=== PATIENT | female | born 1965 | race Caucasian/White ===

== ENCOUNTER 2016-12-23 21:40 | Emergency (ER) | payer OTHER ==
[2016-12-23 21:48] VITALS: BP 189/110; BMI 26.6
--- NOTE | 2016-12-23 23:01 | DR.GENAD ---
HPI - PCP Primary Care Physician: justyn - Complaint/Symptoms Chief Complaint Doctors Comments: Abdominal pain vomiting/diarrhea/ Rectal bleeding Chief Complaint:: c/o rectal bleeding all day-in no distress-also c/o stomach pain-also c/o vomiting and diarrhea - Nurses notes reviewed Nurses Notes Review: Yes - Source History Provided: Patient - Mode of Arrival Mode of Arrival: Ambulatory - Timing Onset of Chief Complaint: 12/23/16 PMH - PMH Past Medical History: Yes Past Medical History: Hypertension Past Medical History Comment: back pain Past Surgical History: Yes Surgical History: Hysterectomy Past Surgical History Comment: back surgery - Family History History of Family Medical Conditions: No Family Medical History: Hypertension - Social History Does any household member use tobacco: No Alcohol Use: None Do you use any recreational Drugs:: No - infectious screening In the last 2 months have you had wt loss of >10#?: NO Have you had fever, night sweats or hemotysis?: No Have you traveled outside the country in the last 6 months?: No Isolation: Standard ROS - Review of Systems Constitutional: No Symptoms Reported Eyes: No Symptoms Reported ENTM: No Symptoms Reported Respiratoy: No Symptoms Reported Cardiovascular: No Symptoms Reported Gastrointestinal/Abdominal: Abdominal Pain, Diarrhea, Nausea Genitourinary: No Symptoms Reported Neurological: No Symptoms Reported Musculoskeletal: No Symptoms Reported Integumentary: No Symptoms Reported Hematologic/Lymphatic: No Symptoms Reported Endocrine: No Symptoms Reported Psychiatric: No Symptoms Reported All Other Systems: Reviewed and Negative PE - Vital Signs Vitals: Temperature 97.9 F Pulse Rate 90 Respiratory Rate 16 Blood Pressure 189/110 O2 Sat by Pulse Oximetry 99 - General Limitations: No Limitations General Appearance: Alert, In No Apparent Distress - Head Head Exam: Normal Inspection - Eyes Eye exam: Normal Appearance - ENT ENT Exam: Normal Exam External Ear Exam: Normal External Inspection TM/Canal Exam: Bilateral Normal Nose Exam: Normal Nose Exam Mouth Exam: Normal Inspection Throat Exam: Normal Inspection - Neck Neck Exam: Normal Inspection - Chest Chest Inspection: Normal Inspection - Respiratory Respiratory Exam: Normal Lung Sounds Bilat Respiratory Exam: Bilateral Clear to Auscultation - Cardiovascular Cardiovascular Exam: Regular Rate, Normal Rhythm - Abdominal Exam Abdominal Exam: Normal Inspection, Normal Bowel Sounds, Soft, Tenderness Abdominal Tenderness: Diffuse - Extremities Extremities Exam: Normal Inspection, Full ROM - Back Back Exam: Normal Inspection - Neurologic Neurological Exam: Alert, Oriented X3 - Psychiatric Psychiatric Exam: Normal Affect, Normal Mood - Skin Skin Exam: Warm, Dry, Intact, Normal Color - Other Exam Other Exam: LUCIUS: Internal hemorrhoids Hemoccult (+) Course - Reevaluation 1st: Improved - Education/Counseling Education/Counseling: Patient Educated On: Treatment, Diagnosis, Needs for Follow Up ROR - Labs Reviewed Laboratory Results Reviewed?: Yes Result Diagrams: 12/23/16 23:10 Laboratory: WBC 14.3 X10^3/uL (3.6-10.0) H 12/23/16 23:10 RBC 4.78 X10^6/uL (3.5-5.4) 12/23/16 23:10 Hgb 13.4 g/dL (12.0-16.0) 12/23/16 23:10 Hct 40.2 % (36.0-47.0) 12/23/16 23:10 MCV 84.2 fL (80.0-100.0) 12/23/16 23:10 MCH 28.0 pg (27.0-34.0) 12/23/16 23:10 MCHC 33.3 g/dL (33.0-35.0) 12/23/16 23:10 RDW 13.0 % (11.6-16.5) 12/23/16 23:10 Plt Count 248 X10^3/uL (150.0-450.0) 12/23/16 23:10 MPV 8.4 fL (7.4-11.0) 12/23/16 23:10 Neut % 71.4 % (42.0-75.0) 12/23/16 23:10 Lymph % 20.1 % (21.0-51.0) L 12/23/16 23:10 [place] % 4.4 % (0.0-13.0) 12/23/16 23:10 Eos % 3.3 % (0.9-2.9) H 12/23/16 23:10 Baso % 0.8 % (0.2-1.0) 12/23/16 23:10 Neut # 10.2 x10^3/uL (2.2-4.8) H 12/23/16 23:10 Lymph # 2.9 X10^3/uL (1.3-2.9) 12/23/16 23:10 [place] # 0.6 x10^3/uL (0.3-0.8) 12/23/16 23:10 Eos # 0.5 x10^3/uL (0.0-0.2) H 12/23/16 23:10 Baso # 0.1 X10^3/uL (0.0-0.1) 12/23/16 23:10 Absolute Nucleated RBC 0.0 /100WBC 12/23/16 23:10 Specimen Type Clean catch urine 12/23/16 22:54 Urine Color Yellow (YELLOW) 12/23/16 22:54 Urine Appearance Slightly hazy (CLEAR) 12/23/16 22:54 Urine pH 7.0 (5.0 - 8.0) 12/23/16 22:54 Ur Specific [place] 1.020 (1.000-1.030) 12/23/16 22:54 Urine Protein 3+ (NEGATIVE) 12/23/16 22:54 Urine Glucose (UA) Negative (NEGATIVE) 12/23/16 22:54 Urine Ketones Negative (NEGATIVE) 12/23/16 22:54 Urine Occult Blood 2+ (NEGATIVE) 12/23/16 22:54 Urine Nitrite Negative (NEGATIVE) 12/23/16 22:54 Urine Bilirubin Negative (NEGATIVE) 12/23/16 22:54 Urine Urobilinogen Normal (NORMAL) 12/23/16 22:54 Ur Leukocyte Esterase 2+ (NEGATIVE) 12/23/16 22:54 Urine RBC 0-2 /HPF (NEGATIVE) 12/23/16 22:54 Urine WBC 8-10 /HPF (NEGATIVE) 12/23/16 22:54 Ur Squamous Epith Cells Moderate /HPF (NEGATIVE) 12/23/16 22:54 Urine Bacteria 1+ /HPF (NEGATIVE) 12/23/16 22:54 Urine Mucus Moderate /HPF (NEGATIVE) 12/23/16 22:54 Ur Culture Indicated? Yes/culture set up 12/23/16 22:54 Stool Description Fob tube 12/23/16 23:12 Stl Occult Blood (IFOB) Positive (NEGATIVE) A 12/23/16 23:12 reviewed - XRAY XRAY Interpreted by: Radiologist, Self XRAY Findings: normal - Diagnosis Discharge Problem: Internal hemorrhoids Abdominal pain Qualifiers: Abdominal location: generalized Qualified Code(s): R10.84 - Generalized abdominal pain Nausea & vomiting Qualifiers: Vomiting type: unspecified Vomiting Intractability: non-intractable Qualified Code(s): R11.2 - Nausea with vomiting, unspecified Elevated WBCs Qualifiers: Leukocytosis type: other Qualified Code(s): D72.828 - Other elevated white blood cell count - Discharge Plan Disposition: 01 HOME, SELF-CARE Condition: Stable - Follow ups/Referrals Follow ups/Referrals: JOVANNY COULTER [Primary Care Provider] - 3 days - Instructions Instructions: Nausea and Vomiting, Adult, Abdominal Pain, Adult, Hydy-[id number], Hemorrhoids, [id number] Additional Instructions: Follow up with PCP. Sitz bath, increase fiber intake.
[2016-12-23] MEDS ORDERED: TORADOL 60 MG VIAL IM ONE (23:10)
[2016-12-23] MEDS ORDERED: TORADOL 60 MG VIAL ONE (23:13)
[2016-12-23 23:16] LABS: BILIRUBIN,URINE NEGATIVE (NEGATIVE); BLOOD/HEMOGLOBIN,URINE 2+ (NEGATIVE); GLUCOSE, URINE NEGATIVE (NEGATIVE); KETONES,URINE NEGATIVE (NEGATIVE); LEUKOCYTE ESTERASE ,URINE 2+ (NEGATIVE); NITRITES,URINE NEGATIVE (NEGATIVE); PROTEIN,URINE 3+ (NEGATIVE); UROBILINOGEN,URINE NORMAL (NORMAL)
[2016-12-23 23:22] LABS: APPEARANCE,URINE SLIGHTLY HAZY (CLEAR); BACTERIA,URINE 1+ /HPF (NEGATIVE); COLOR,URINE YELLOW (YELLOW); RBC,URINE 0-2 /HPF (NEGATIVE); SQUAMOUS EPITHELIAL CELL,UR MODERATE /HPF (NEGATIVE)
[2016-12-23 23:23] LABS: MUCUS,URINE MODERATE /HPF (NEGATIVE)
[2016-12-23 23:30] LABS: BASOPHILS # (AUTO) 0.1 X10^3/uL (0.0-0.1); BASOPHILS % (AUTO) 0.8 % (0.2-1.0); EOSINOPHILS # (AUTO) 0.5 x10^3/uL (0.0-0.2); EOSINOPHILS % (AUTO) 3.3 % (0.9-2.9); HEMATOCRIT 40.2 % (36.0-47.0); HEMOGLOBIN 13.4 g/dL (12.0-16.0); LYMPHOCYTES # (AUTO) 2.9 X10^3/uL (1.3-2.9); LYMPHOCYTES % (AUTO) 20.1 % (21.0-51.0); MEAN CORPUSCULAR HGB CONC 33.3 g/dL (33.0-35.0); MEAN CORPUSCULAR VOLUME 84.2 fL (80.0-100.0); MEAN PLATELET VOLUME 8.4 fL (7.4-11.0); MONOCYTES # (AUTO) 0.6 x10^3/uL (0.3-0.8); MONOCYTES % (AUTO) 4.4 % (0.0-13.0); NEUTROPHILS # (AUTO) 10.2 x10^3/uL (2.2-4.8); NEUTROPHILS % (AUTO) 71.4 % (42.0-75.0); PLATELET COUNT 248 X10^3/uL (150.0-450.0); RED BLOOD COUNT 4.78 X10^6/uL (3.5-5.4); WHITE BLOOD COUNT 14.3 X10^3/uL (3.6-10.0)
[2016-12-23] MEDS ORDERED: ROCEPHIN VIAL 1 GM 1 GM in NS 50 ML IV + SPIKE MINIBAG* 50 ML IV ONE (23:47)
[2016-12-23] MEDS ORDERED: NS 1000 ML 1,000 ML IV ONE (23:47)
[2016-12-23] MEDS ORDERED: ZOFRAN INJ 4 MG VIAL IVP ONE (23:49)
--- NOTE | 2016-12-23 23:56 | RAD ---
EXAM: Abdomen series and Chest x-ray INDICATION: Abdominal pain COMPARISION: No priors TECHNIQUE: Abdomen flat and upright, two views and PA view of the chest, single view FINDINGS: The lungs are clear. No pneumothorax or pleural effusion. The cardiac silhouette and mediastinum are normal. The bowel gas pattern is nonobstructed. No abnormal mass effect or calcification. The regio nal skeleton is intact. No free air is seen under the hemidiaphragms. IMPRESSION: Normal abdominal series and chest x-ray. Reported By:
[2016-12-24] MEDS ORDERED: ZOFRAN INJ 4 MG VIAL ONE (00:03)
[2016-12-24] MEDS ORDERED: ROCEPHIN 1 GM IV PREMIX * OUT OF STOCK 50 ML IV ONE (00:03)
[2016-12-24] MEDS ORDERED: NS 1000 ML 1,000 ML ONE (00:03)
== END 2016-12-24 01:19 | disposition home or self-care (01) ==
LOC: ER 21:40
DX: K64.8 Other hemorrhoids (principal); R10.84 Generalized abdominal pain; R11.2 Nausea with vomiting, unspecified; D72.828 Other elevated white blood cell count
CPT/HCPCS: 36415; 74022; 81001; 82270; 85025; 87086; 96365; 96372; 96374; 96375; 99283; A4222; J0696; J1885; J2405

== ENCOUNTER → 2017-04-29 | Outpatient (CLI) | payer OTHER ==
[2017-04-29 15:17] LABS: ALANINE AMINOTRANSFERASE 20 Units/L (12-78); ALBUMIN 3.6 g/dL (3.4-5.0); ALKALINE PHOSPHATASE 110 Units/L (46-116); ASPARTATE AMINO TRANSFERASE 12 Units/L (15-37); BLOOD UREA NITROGEN 24 mg/dL (7-18); CALCIUM 9.5 mg/dL (8.5-10.1); CARBON DIOXIDE 29.1 mmol/L (21-32); CHLORIDE 103 mmol/L (98-107); CREATININE 1.04 mg/dL (0.55-1.02); GLUCOSE 92 mg/dL (65-99); SODIUM 137 mmol/L (136-145); TOTAL PROTEIN 8.1 g/dL (6.4-8.2); eGFR BLACK RACES > 60 (>60); eGFR NON BLACK RACES 60 (>60)
== END ==
LOC: LAB 14:37
PROVIDERS: ATTEND Physical Medicine & Rehabilitation Pain Medicine
DX: Z79.891 Long term (current) use of opiate analgesic (principal)
CPT/HCPCS: 36415; 80053

== ENCOUNTER → 2017-08-20 | Outpatient (CLI) | payer OTHER ==
[2017-08-20 09:13] LABS: CRYPTOSPORIDIUM PARVUM ANTIGEN NEGATIVE (NEGATIVE); GIARDIA LAMBLIA ANTIGEN NEGATIVE (NEGATIVE)
== END ==
LOC: LAB 07:46
PROVIDERS: ATTEND Family Medicine
DX: R19.7 Diarrhea, unspecified (principal); R19.5 Other fecal abnormalities
CPT/HCPCS: 82270; 87045; 87328; 87329; 87336; 87427; 87493; 87899

== ENCOUNTER 2018-01-09 22:52 | Emergency (ER) | payer OTHER ==
[2018-01-09 23:09] VITALS: BP 108/74; BMI 30.2
[2018-01-09] MEDS ORDERED: NUBAIN INJ 200 MG VIAL MULTIDOSE IVP ONE (23:18)
--- NOTE | 2018-01-09 23:20 | DR.GENAD ---
HPI - PCP Primary Care Physician: Terrance Starr - Complaint/Symptoms Chief Complaint:: Hurting in left hip and leg. (Patient states that she has a disc on her nerve on that side) Self Treatment fo Chief Complaint: Patient states that she has been taking medication as prescribe but today she took them more than she should; but the medication is still not working. (Hydrocodone and Xanax) - Nurses notes reviewed Nurses Notes Review: Yes - Source History Provided: Patient - Mode of Arrival Mode of Arrival: Ambulatory - Timing Onset of Chief Complaint: 01/02/18 PMH - PMH Past Medical History: Yes Past Medical History: Migraines Past Surgical History: Yes Surgical History: Ortho Surgery Past Surgical History Comment: Back Surgery 2016 - Family History History of Family Medical Conditions: Yes Family Medical History: Diabetes Mellitus, Cancer, Heart Failure - Social History Does patient currently use any type of tobacco product: No Have you used tobacco products in the last 12 months: No Type of Tobacco Use: None Does any household member use tobacco: No Alcohol Use: None Do you use any recreational Drugs:: No Lives With: Alone Lives Where: Home - infectious screening In the last 2 months have you had wt loss of >10#?: NO Have you had fever, night sweats or hemotysis?: No Have you traveled outside the country in the last 6 months?: Yes Details about traveling: [place] Isolation: Standard ROS - Review of Systems Constitutional: No Symptoms Reported Eyes: No Symptoms Reported ENTM: No Symptoms Reported Respiratoy: No Symptoms Reported Cardiovascular: No Symptoms Reported Gastrointestinal/Abdominal: No Symptoms Reported Genitourinary: No Symptoms Reported Neurological: No Symptoms Reported Musculoskeletal: Back Pain Integumentary: No Symptoms Reported Hematologic/Lymphatic: No Symptoms Reported Endocrine: No Symptoms Reported Psychiatric: No Symptoms Reported All Other Systems: Reviewed and Negative PE - Vital Signs Vitals: Temperature 97.7 F Pulse Rate 94 Respiratory Rate 18 Blood Pressure 108/74 O2 Sat by Pulse Oximetry 94 - General Limitations: No Limitations General Appearance: Alert, In No Apparent Distress - Head Head Exam: Normal Inspection - Eyes Eye exam: Normal Appearance - ENT ENT Exam: Normal Exam - Neck Neck Exam: Normal Inspection, Full ROM - Chest Chest Inspection: Normal Inspection - Respiratory Respiratory Exam: Normal Lung Sounds Bilat - Cardiovascular Cardiovascular Exam: Regular Rate, Normal Rhythm, +S1, +S2 - Abdominal Exam Abdominal Exam: Normal Inspection, Normal Bowel Sounds, Soft - Extremities Extremities Exam: Normal Inspection - Back Back Exam: Normal Inspection, (L) Sciatic Notch Tendern - Neurologic Neurological Exam: Alert, Oriented X3 - Psychiatric Psychiatric Exam: Normal Affect, Normal Mood - Skin Skin Exam: Warm, Dry, Intact, Normal Color - Diagnosis Discharge Problem: Acute exacerbation of chronic low back pain - Discharge Plan Disposition: 01 HOME, SELF-CARE Condition: Stable - Follow ups/Referrals Follow ups/Referrals: TERRANCE STARR [Primary Care Provider] - 3 days - Instructions Instructions: What You Need to Know About Chronic Back Pain
[2018-01-09] MEDS ORDERED: NUBAIN INJ 10 ONE (23:23)
== END 2018-01-09 23:43 | disposition home or self-care (01) ==
LOC: ER 23:01
DX: M54.5 Low back pain (principal)
CPT/HCPCS: 96372; 99282; J2300

== ENCOUNTER 2019-03-24 09:58 | Inpatient (IN) ==
[2019-03-24 10:23] VITALS: BMI 32.3
[2019-03-24 10:51] LABS: BASOPHILS % (AUTO) 1.1 % (0.2-1.0); EOSINOPHILS # (AUTO) 0.2 x10^3/uL (0.0-0.2); EOSINOPHILS % (AUTO) 6.3 % (0.9-2.9); HEMATOCRIT 25.3 % (36.0-47.0); HEMOGLOBIN 8.6 g/dL (12.0-16.0); LYMPHOCYTES # (AUTO) 1.3 X10^3/uL (1.3-2.9); LYMPHOCYTES % (AUTO) 41.9 % (21.0-51.0); MEAN CORPUSCULAR HEMOGLOBIN 34.4 pg (27.0-34.0); MEAN CORPUSCULAR HGB CONC 34.1 g/dL (33.0-35.0); MEAN CORPUSCULAR VOLUME 100.9 fL (80.0-100.0); MEAN PLATELET VOLUME 7.2 fL (7.4-11.0); MONOCYTES # (AUTO) 0.3 x10^3/uL (0.3-0.8); NEUTROPHILS # (AUTO) 1.2 x10^3/uL (2.2-4.8); NEUTROPHILS % (AUTO) 39.7 % (42.0-75.0); PLATELET COUNT 124 X10^3/uL (150.0-450.0); RED BLOOD COUNT 2.51 X10^6/uL (3.5-5.4); RED CELL DISTRIBUTION WIDTH 16.9 % (11.6-16.5)
--- NOTE | 2019-03-24 10:57 | CT ---
HISTORY: Lethargy, unresponsive, altered mental status Study: CT head without contrast Comparison: 01/24/2019 Technique: Axial noncontrast images with coronal and sagittal reformats. Dose reduction procedures were used with mA/kv adjusted for body size. Findings: The ventricles are normal in size shape and position. There are no areas of abnormal attenuation to suggest recent or remote CVA, hemorrhage, mass lesion, or extra-axial fluid collection. The visualized sinuses are clear. The calvarium is intact. IMPRESSION: No significant intracranial abnormality identified Reported By:
--- NOTE | 2019-03-24 11:04 | DR.AMS ---
HPI Time Seen Time Seen by Provider: 03/24/19 11:01 PCP Primary Care Physician: MARYLIN Complaint Chief Complaint:: PT'S FAMILY MEMBER CALLS EMS DUE TO PT. HAVING AMS. LAST KNOWN NORMAL WAS SATURDAY. UPON ARRIVAL TO ER, PT. IS LETHARGIC. PT. RESPONDS TO PAINFUL STIMULI BY FACIAL GRIMACING BUT PT. IS NOT RESPONDING VERBALLY. PT. NOTED TO HAVE A TWITCHING MOVEMENT TO BODY. Source History Provided: Family Member and EMS Mode of Arrival Mode of Arrival: EMS Timing Onset of Chief Complaint: 03/24/19 PMH PMH Past Medical History: Yes Past Medical History: Anemia and Migraines Past Medical History Comment: COLON CANCER Past Surgical History: Yes Surgical History: Abdominal Surgery, Appendectomy, , Cholecystectomy, Hysterectomy, Ortho Surgery and Other Family History History of Family Medical Conditions: Yes Family Medical History: Diabetes Mellitus, Cancer and Heart Failure Social History Does patient currently use any type of tobacco product: No Have you used tobacco products in the last 12 months: No Type of Tobacco Use: None Does any household member use tobacco: No Alcohol Use: None Do you use any recreational Drugs:: No Lives With: Alone Lives Where: Home infectious screening In the last 2 months have you had wt loss of >10#?: NO Have you had fever, night sweats or hemotysis?: No Have you traveled outside the country in the last 6 months?: No Isolation: Standard ROS Review of Systems Constitutional: No Symptoms Reported Eyes: No Symptoms Reported ENTM: No Symptoms Reported Respiratoy: No Symptoms Reported Cardiovascular: No Symptoms Reported Gastrointestinal/Abdominal: No Symptoms Reported Genitourinary: No Symptoms Reported Neurological: No Symptoms Reported Musculoskeletal: No Symptoms Reported Hematologic/Lymphatic: No Symptoms Reported All Other Systems: Reviewed and Negative PE Vitals Vital Signs: Temp Pulse Pulse Resp BP BP BP 03/25/19 02:00 88 26 H 135/72 03/25/19 01:01 87 31 H 136/73 03/25/19 01:00 86 26 H 03/25/19 00:00 98.4 F 85 21 125/61 03/24/19 23:30 85 19 114/62 03/24/19 23:00 86 21 120/74 03/24/19 22:30 83 118/66 03/24/19 22:05 85 24 113/61 03/24/19 22:00 86 22 03/24/19 21:30 84 24 109/60 03/24/19 21:00 86 17 104/57 03/24/19 20:30 88 21 101/59 03/24/19 20:00 98.0 F 86 15 107/58 03/24/19 19:30 88 23 110/56 03/24/19 19:00 89 15 107/54 03/24/19 16:15 96 H 16 03/24/19 16:00 96 H 15 102/55 03/24/19 15:45 93 H 16 03/24/19 15:30 94 H 15 111/57 03/24/19 15:15 93 H 15 03/24/19 15:14 91 H 16 107/59 03/24/19 15:13 95 H 18 03/24/19 15:00 98.9 F 94 H 93 H 21 109/56 111/57 03/24/19 14:45 94 H 22 100/52 03/24/19 14:15 20 92/55 03/24/19 14:00 85 27 H 79/52 03/24/19 13:40 84 17 90/52 03/24/19 13:20 14 90/51 03/24/19 13:00 85 15 98/52 03/24/19 12:45 87 12 97/54 03/24/19 12:00 91 H 11 L 101/53 03/24/19 11:40 93 H 12 103/53 03/24/19 11:28 92 H 13 112/59 03/24/19 11:05 94 H 15 119/61 03/24/19 10:19 99 F 97 H 17 106/81 01/24/19 04:04 108/72 108/72 11/08/18 08:25 122/79 BP BP Pulse Ox 03/25/19 02:00 99 03/25/19 01:01 99 03/25/19 01:00 99 03/25/19 00:00 100 03/24/19 23:30 99 03/24/19 23:00 99 03/24/19 22:30 98 03/24/19 22:05 99 03/24/19 22:00 100 03/24/19 21:30 99 03/24/19 21:00 98 03/24/19 20:30 98 03/24/19 20:00 98 03/24/19 19:30 99 03/24/19 19:00 98 03/24/19 16:15 98 03/24/19 16:00 98 03/24/19 15:45 98 03/24/19 15:30 92 L 03/24/19 15:15 03/24/19 15:14 03/24/19 15:13 03/24/19 15:00 97 03/24/19 14:45 97 03/24/19 14:15 99 03/24/19 14:00 98 03/24/19 13:40 98 03/24/19 13:20 98 03/24/19 13:00 98 03/24/19 12:45 97 03/24/19 12:00 98 03/24/19 11:40 98 03/24/19 11:28 98 03/24/19 11:05 95 03/24/19 10:19 95 01/24/19 04:04 11/08/18 08:25 125/77 121/71 General Limitations: Altered Mental Status General Appearance: Appears Intoxicated and Obtunded Head Head Exam: Normal Inspection, Atraumatic and Normocephalic Eyes Eye exam: Normal Appearance Pupils: Regular, Round: Bilateral ENT ENT Exam: Normal Exam and Normal Oropharynx External Ear Exam: Normal External Inspection TM/Canal Exam: Bilateral: Normal Nose Exam: Normal Nose Exam Mouth Exam: Normal Inspection Throat Exam: Normal Inspection Neck Neck Exam: Normal Inspection and Full ROM Chest Chest Inspection: Normal Inspection and Symmetric Chest Wall Rise Respiratory Respiratory Exam: Normal Lung Sounds Bilat Respiratory Exam: Bilateral: Clear to Auscultation Cardiovascular Cardiovascular Exam: Regular Rate and Normal Rhythm Abdominal Exam Abdominal Exam: Normal Inspection, Normal Bowel Sounds and Soft Abdominal Tenderness: RUQ Extremities Extremities Exam: Normal Inspection and Full ROM Back Back Exam: Normal Inspection Neurological Neurological Exam: Alert, Oriented X3 and CN II-XII Intact Cranial Nerve Exam: EOM Function (II, III, IV, ): Normal Cerebellar Function: Finger to Nose: Normal Skin Skin Exam: Warm, Dry and Intact COURSE Consultation Called: 12:20 Consultation Comments: DR. Potter agree to admit for further evaluation and treatment ROR Labs Reviewed Laboratory Results Reviewed?: Yes Result Diagrams: 03/25/19 04:06 03/25/19 04:06 Laboratory: WBC 2.2 X10^3/uL (3.6-10.0) L 03/25/19 04:06 RBC 2.47 X10^6/uL (3.5-5.4) L 03/25/19 04:06 Hgb 8.5 g/dL (12.0-16.0) L 03/25/19 04:06 Hct 24.8 % (36.0-47.0) L 03/25/19 04:06 MCV 100.3 fL (80.0-100.0) H 03/25/19 04:06 MCH 34.5 pg (27.0-34.0) H 03/25/19 04:06 MCHC 34.4 g/dL (33.0-35.0) 03/25/19 04:06 RDW 16.3 % (11.6-16.5) 03/25/19 04:06 Plt Count 112 X10^3/uL (150.0-450.0) L 03/25/19 04:06 Plt Count Comment Decreased (ADEQUATE) A 03/25/19 04:06 MPV 7.5 fL (7.4-11.0) 03/25/19 04:06 Neut % (Auto) 41.3 % (42.0-75.0) L 03/25/19 04:06 Lymph % (Auto) 42.4 % (21.0-51.0) 03/25/19 04:06 [facility] % (Auto) 12.4 % (0.0-13.0) 03/25/19 04:06 Eos % (Auto) 3.2 % (0.9-2.9) H 03/25/19 04:06 Baso % (Auto) 0.7 % (0.2-1.0) 03/25/19 04:06 Neut # (Auto) 0.9 x10^3/uL (2.2-4.8) L 03/25/19 04:06 Lymph # (Auto) 0.9 X10^3/uL (1.3-2.9) L 03/25/19 04:06 [facility] # (Auto) 0.3 x10^3/uL (0.3-0.8) 03/25/19 04:06 Eos # (Auto) 0.1 x10^3/uL (0.0-0.2) 03/25/19 04:06 Baso # (Auto) 0.0 X10^3/uL (0.0-0.1) 03/25/19 04:06 Absolute Nucleated RBC 0.0 /100WBC 03/25/19 04:06 Total Counted 100 03/25/19 04:06 Neutrophils % (Manual) 40 % (39-76) 03/25/19 04:06 Lymphocytes % (Manual) 44 % (13-43) H 03/25/19 04:06 Monocytes % (Manual) 15 % (4-9) H 03/25/19 04:06 Eosinophils % (Manual) 1 % (0-6) 03/25/19 04:06 Plt Morphology Comment Normal (NORMAL) 03/25/19 04:06 RBC Morphology Normal (NORMAL) 03/25/19 04:06 INR Target Range - 03/24/19 10:33 INR 1.08 (0.8-1.3) 03/24/19 10:33 APTT 30.1 SECONDS (22.9-36.5) 03/24/19 10:33 PTT Comment - 03/24/19 10:33 Sodium 143 mmol/L (136-145) 03/25/19 04:06 Corrected Sodium 143 mmol/L (136-145) 03/25/19 04:06 Potassium 3.6 mmol/L (3.5-5.1) 03/25/19 04:06 Chloride 109 mmol/L (98-107) H 03/25/19 04:06 Carbon Dioxide 24.1 mmol/L (21-32) 03/25/19 04:06 BUN 9 mg/dL (7-18) 03/25/19 04:06 Creatinine 1.21 mg/dL (0.55-1.02) H 03/25/19 04:06 Est GFR (MDRD) Af Amer > 60 (>60) 03/25/19 04:06 Est GFR (MDRD) Non-Af 50 (>60) L 03/25/19 04:06 Glucose 112 mg/dL (65-99) H 03/25/19 04:06 POC Glucose (mg/dL) 110 mg/dL (65-99) H 03/24/19 21:39 Calcium 8.8 mg/dL (8.5-10.1) 03/25/19 04:06 Corrected Calcium 9.6 mg/dL (8.5-10.1) 03/25/19 04:06 Total Bilirubin 1.30 mg/dL (0.2-1.0) H 03/25/19 04:06 AST 67 Units/L (15-37) H 03/25/19 04:06 ALT 36 Units/L (12-78) 03/25/19 04:06 Alkaline Phosphatase 149 Units/L (46-116) H 03/25/19 04:06 Ammonia 58 umol/L (11-32) H 03/25/19 04:06 Creatine Kinase 563 Units/L (26-192) H 03/24/19 10:33 CK-MB (CK-2) 1.8 ng/mL (0-4.0) 03/24/19 10:33 CK/CKMB % Calc 0.3 % (<4) 03/24/19 10:33 Troponin I < 0.02 ng/mL (0-1.5) 03/24/19 10:33 Total Protein 6.4 g/dL (6.4-8.2) 03/25/19 04:06 Albumin 3.0 g/dL (3.4-5.0) L 03/25/19 04:06 Globulin 3.4 g/dL (2.5-4.5) 03/25/19 04:06 Albumin/Globulin Ratio 0.9 Ratio (1.1-2.1) L 03/25/19 04:06 Specimen Type Catherized urine 03/24/19 10:58 Urine Color Yellow (YELLOW) 03/24/19 10:58 Urine Appearance Hazy (CLEAR) 03/24/19 10:58 Urine pH 5.0 (5.0 - 8.0) 03/24/19 10:58 Ur Specific [place] 1.020 (1.000-1.030) 03/24/19 10:58 Urine Protein 1+ (NEGATIVE) 03/24/19 10:58 Urine Glucose (UA) Negative (NEGATIVE) 03/24/19 10:58 Urine Ketones Negative (NEGATIVE) 03/24/19 10:58 Urine Occult Blood 1+ (NEGATIVE) 03/24/19 10:58 Urine Nitrite Negative (NEGATIVE) 03/24/19 10:58 Urine Bilirubin Negative (NEGATIVE) 03/24/19 10:58 Urine Urobilinogen 1+ (NORMAL) 03/24/19 10:58 Ur Leukocyte Esterase 1+ (NEGATIVE) 03/24/19 10:58 Urine RBC 0-2 /HPF (NONE SEEN) 03/24/19 10:58 Urine WBC 0-2 /HPF (NONE SEEN) 03/24/19 10:58 Ur Squamous Epith Cells Negative /HPF (NEGATIVE) 03/24/19 10:58 Urine Bacteria Negative /HPF (NEGATIVE) 03/24/19 10:58 Hyaline Casts Few /LPF (NEGATIVE) 03/24/19 10:58 Urine Mucus Few /HPF (NEGATIVE) 03/24/19 10:58 Ur Culture Indicated? No/not indicated 03/24/19 10:58 Urine Opiates Screen Positive (NEG=<300) A 03/24/19 10:58 Urine Methadone Screen Negative (NEG=<300) 03/24/19 10:58 Ur Barbiturates Screen Negative (NEG=<200) 03/24/19 10:58 Ur Phencyclidine Scrn Negative (NEG=<25) 03/24/19 10:58 Ur Amphetamines Screen Negative (NEG=<1000) 03/24/19 10:58 U Benzodiazepines Scrn Positive (NEG=<200) A 03/24/19 10:58 Urine Cocaine Screen Negative (NEG=<300) 03/24/19 10:58 U Marijuana (THC) Screen Negative (NEG=<50) 03/24/19 10:58 Other Results Comments: CT Brain: No significant intracranial abnormality idientified XRAY XRAY Interpreted by: Radiologist Opioid Opioid Risk Tool Total: 0 Total Score Risk Category: Low Risk Copyright: Moi BARRETT predicting aberrant behaviors ADDITIONAL NOTES Additional Notes Additional Notes: Patient admitted to the service of Dr. Potter
[2019-03-24 11:05] LABS: ALANINE AMINOTRANSFERASE 42 Units/L (12-78); ALBUMIN 3.4 g/dL (3.4-5.0); ALKALINE PHOSPHATASE 167 Units/L (46-116); ASPARTATE AMINO TRANSFERASE 61 Units/L (15-37); BLOOD UREA NITROGEN 12 mg/dL (7-18); CALCIUM 9.4 mg/dL (8.5-10.1); CARBON DIOXIDE 27.8 mmol/L (21-32); CHLORIDE 106 mmol/L (98-107); CKMB % 0.3 % (<4); CREATINE KINASE 563 Units/L (26-192); CREATINE KINASE MB 1.8 ng/mL (0-4.0); CREATININE 2.52 mg/dL (0.55-1.02); SODIUM 142 mmol/L (136-145); TOTAL PROTEIN 7.3 g/dL (6.4-8.2); TROPONIN I < 0.02 ng/mL (0-1.5); eGFR NON BLACK RACES 21 (>60)
--- NOTE | 2019-03-24 11:09 | RAD ---
Chest, 1 view Indication: Altered mental status Comparison: 01/24/2019 Findings: The cardiac silhouette is stable. There is decreased depth of inspiration with increased interstitial prominence. No dense infiltrates or significant pleural effusion. Impression: Interstitial prominence is likely secondary to low lung volumes, although atypical infection or minimal edema is not excluded. Consider two-view chest, as indicated. Reported By:
[2019-03-24 11:10] LABS: BILIRUBIN,URINE NEGATIVE (NEGATIVE); BLOOD/HEMOGLOBIN,URINE 1+ (NEGATIVE); GLUCOSE, URINE NEGATIVE (NEGATIVE); KETONES,URINE NEGATIVE (NEGATIVE); LEUKOCYTE ESTERASE ,URINE 1+ (NEGATIVE); NITRITES,URINE NEGATIVE (NEGATIVE); PROTEIN,URINE 1+ (NEGATIVE); UROBILINOGEN,URINE 1+ (NORMAL)
[2019-03-24 11:14] LABS: APPEARANCE,URINE HAZY (CLEAR); COLOR,URINE YELLOW (YELLOW)
[2019-03-24 11:15] LABS: BACTERIA,URINE NEGATIVE /HPF (NEGATIVE); HYALINE CASTS, URINE FEW /LPF (NEGATIVE); MUCUS,URINE FEW /HPF (NEGATIVE); RBC,URINE 0-2 /HPF (NONE SEEN); SQUAMOUS EPITHELIAL CELL,UR NEGATIVE /HPF (NEGATIVE)
[2019-03-24] MEDS: NS 1000 ML 1,000 ML IV SCH ×3 (13:03→23:59)
[2019-03-24] MEDS ORDERED: NS 1000 ML 1,000 ML IV ONE (14:17)
[2019-03-24] MEDS ORDERED: ZOFRAN INJ 4 MG VIAL IVP PRN (14:27)
[2019-03-24] MEDS ORDERED: VITAMIN D (1.25MG) PO SCH (14:30)
[2019-03-24] MEDS ORDERED: NS 1000 ML 1,000 ML IV SCH (15:00)
[2019-03-24] MEDS ORDERED: TOPAMAX TAB 100 MG PO SCH (21:00)
[2019-03-24] MEDS: CHRONULAC PO PRN (21:58)
[2019-03-24] MEDS: DESYREL PO SCH (21:59)
[2019-03-24] MEDS: ZESTORETIC 10/ 12.5MG PO SCH (22:00)
[2019-03-24] MEDS ORDERED: NEURONTIN TAB 600 MG PO SCH (22:00)
[2019-03-25 04:22] LABS: BASOPHILS % (AUTO) 0.7 % (0.2-1.0); EOSINOPHILS # (AUTO) 0.1 x10^3/uL (0.0-0.2); EOSINOPHILS % (AUTO) 3.2 % (0.9-2.9); HEMATOCRIT 24.8 % (36.0-47.0); HEMOGLOBIN 8.5 g/dL (12.0-16.0); LYMPHOCYTES # (AUTO) 0.9 X10^3/uL (1.3-2.9); LYMPHOCYTES % (AUTO) 42.4 % (21.0-51.0); MEAN CORPUSCULAR HEMOGLOBIN 34.5 pg (27.0-34.0); MEAN CORPUSCULAR HGB CONC 34.4 g/dL (33.0-35.0); MEAN CORPUSCULAR VOLUME 100.3 fL (80.0-100.0); MEAN PLATELET VOLUME 7.5 fL (7.4-11.0); MONOCYTES # (AUTO) 0.3 x10^3/uL (0.3-0.8); MONOCYTES % (AUTO) 12.4 % (0.0-13.0); NEUTROPHILS # (AUTO) 0.9 x10^3/uL (2.2-4.8); NEUTROPHILS % (AUTO) 41.3 % (42.0-75.0); PLATELET COUNT 112 X10^3/uL (150.0-450.0); RED BLOOD COUNT 2.47 X10^6/uL (3.5-5.4); RED CELL DISTRIBUTION WIDTH 16.3 % (11.6-16.5); WHITE BLOOD COUNT 2.2 X10^3/uL (3.6-10.0)
[2019-03-25 04:28] LABS: ALANINE AMINOTRANSFERASE 36 Units/L (12-78); ALKALINE PHOSPHATASE 149 Units/L (46-116); ASPARTATE AMINO TRANSFERASE 67 Units/L (15-37); BLOOD UREA NITROGEN 9 mg/dL (7-18); CALCIUM 8.8 mg/dL (8.5-10.1); CARBON DIOXIDE 24.1 mmol/L (21-32); CHLORIDE 109 mmol/L (98-107); COR CA(FOR HYPOALB) 9.6 mg/dL (8.5-10.1); COR NA(FOR HYPERGLY) 143 mmol/L (136-145); CREATININE 1.21 mg/dL (0.55-1.02); SODIUM 143 mmol/L (136-145); TOTAL PROTEIN 6.4 g/dL (6.4-8.2); eGFR NON BLACK RACES 50 (>60)
[2019-03-25 04:49] LABS: PLATELET MORPHOLOGY COMMENT NORMAL (NORMAL)
[2019-03-25 05:24] LABS: BILIRUBIN,URINE NEGATIVE (NEGATIVE); BLOOD/HEMOGLOBIN,URINE 2+ (NEGATIVE); GLUCOSE, URINE NEGATIVE (NEGATIVE); KETONES,URINE NEGATIVE (NEGATIVE); LEUKOCYTE ESTERASE ,URINE 1+ (NEGATIVE); NITRITES,URINE NEGATIVE (NEGATIVE); PROTEIN,URINE 1+ (NEGATIVE); UROBILINOGEN,URINE 1+ (NORMAL)
[2019-03-25 05:34] LABS: APPEARANCE,URINE CLEAR (CLEAR); BACTERIA,URINE NEGATIVE /HPF (NEGATIVE); COLOR,URINE PALE YELLOW (YELLOW); SQUAMOUS EPITHELIAL CELL,UR FEW /HPF (NEGATIVE)
[2019-03-25] MEDS: NS 1000 ML 1,000 ML IV SCH ×3 (07:01→17:12)
[2019-03-25] MEDS ORDERED: PHARMACY CONSULT - DOSE _____ XX SCH (08:00)
[2019-03-25] MEDS ORDERED: NEURONTIN TAB 600 MG PO PRN (09:41)
[2019-03-25 10:21] LABS: ABG BASE EXCESS 1.7 mmol/L (-2.0-2.0); ABG HCO3 25.8 mmol/L (22-26)
[2019-03-25] MEDS: PROTONIX TAB 40 MG PO SCH (10:30)
[2019-03-25] MEDS: CYMBALTA PO SCH (10:50)
[2019-03-25] MEDS: ROCEPHIN VIAL 1 GRAM IVP SCH (10:51)
[2019-03-25] MEDS: ZESTORETIC 10/ 12.5MG PO SCH ×2 (10:51→21:09)
--- NOTE | 2019-03-25 13:20 | CT ---
CT OF THE ABDOMEN AND PELVIS WITH CONTRAST HISTORY: Abdominal pain and distention. History of colon cancer. Comparison: 11/08/2018 Technique: Multiple axial images of the abdomen and pelvis were obtained from the lung bases to the pubic symphysis follow the administration of IV contrast. Dose reduction techniques including Automated Exposure Control (AEC) and adjustment of mA and kV were utlized. Findings: The heart is normal in size. There is no pericardial effusion. Focal atelectasis/ground-glass at the left lung base. Spleen measures 16 cm in anterior-posterior dimension. Liver is not enlarged. No focal lesions. The portal vein is patent. No ductal dilitation. Gallbladder absent. The pancreas is unremarkable. Adrenal glands are normal. Kidneys enhance symmetrically without hydronephrosis or nephrolithiasis. No bowel obstruction or inflammation. Prior bowel surgery. No abnormal appearing mesenteric or retroperitoneal lymph nodes. No free fluid or fluid collections. The bladder is normal in appearance. Uterus present. No free fluid or abnormal pelvic lymph nodes. No aggressive osseous lesions. IMPRESSION: 1. No source of abdominal distention is identified on this examination. 2. Mild splenomegaly. 3. Atelectasis at the left lung base. Superimposed infection cannot be excluded. Reported By:
--- NOTE | 2019-03-25 14:27 | RAD ---
HISTORY: AMS, shortness of breath, pneumonia. Prior history of colon cancer and anemia. Study: Single-view chest Comparison: 03/24/2019. Findings: Trachea is midline. Heart size is upper normal with pulmonary vascular congestion and increased interstitial markings bilaterally, having the appearance of mild CHF. No consolidation, pleural fluid or pneumothorax is seen. IMPRESSION: Findings likely representing mild CHF. No consolidation or pleural fluid is seen. Reported By:
[2019-03-25] MEDS: LOVENOX INJ 30 MG SYR SC SCH (14:54)
[2019-03-25] MEDS ORDERED: LASIX IVP ONE (17:21)
--- NOTE | 2019-03-25 17:27 | DR.H&P ---
H&P - History & Physical for Day of: H&P Date: 03/24/19 - Chief Complaint Chief Complaint: AMS - History of Present Illness History of Present Illness: 54 WF ER ADMISSION PRESENTIN TO ER AFTER PT'S FAMILY MEMBER CALLS EMS DUE TO MS TRUJILLO HAVING AMS. LAST KNOWN NORMAL WAS SATURDAY. UPON ARRIVAL TO ER, PATIENT WAS LETHARGIC. PT. RESPONDS TO PAINFUL STIMULI BY FACIAL GRIMACING BUT PT. IS NOT RESPONDING VERBALLY. PT. NOTED TO HAVE A TWITCHING M OVEMENT TO BODY. PT HAD CXR WITH POSSIBLE PNEUMONIA, PT UDS +BENZOS AND OPIOIDS WHICH SHE IS PRESCRIBED. PT HAS COLON CANCER AND RECEIVED LAST CHEMO TREATMENT IN [place] 2 WEEKS AGO. HAD PET SCAN SET UP FOR SATURDAY BUT "SLEPT ALL DAY" PER FAMILY. PTS AMMONIA LEVEL >80. PT ADMITTED TO ICU FOR TREATMENT AND EVALUATION OF AMS. - Past Medical History Past Medical History: Anemia, Migraines. denies: COPD, Coronary Artery Disease, Diabetes, Hypertension - Past Surgical History Surgical History: Abdominal Surgery, Appendectomy, Cholecystectomy, , Hysterectomy, Ortho Surgery, Other - Family History Family Medical History: Diabetes Mellitus, Cancer, Heart Failure - Social History Does patient currently use any type of tobacco product: No Have you used tobacco products in the last 12 months: No Type of Tobacco Use: None Does any household member use tobacco: No Alcohol Use: None Drug Use: None - Medications Home Medications: No Known Drug Allergies Allergy (Verified 07/16/18 07:32) CONTINUE taking the following medications citalopram 40 mg PO DAILY 03/24/19 [History] clonidine HCl 0.2 mg PO QHS 03/24/19 [History] ergocalciferol (vitamin D2) [Vitamin D2] 50,000 unit PO QWEEK 03/24/19 [History] estradiol 2 mg PO DAILY 03/24/19 [History] lisinopril 10 mg PO DAILY 03/24/19 [History] - Review of Systems Constitutional: Other (AMS) Eyes: No Symptoms Reported ENT: No Symptoms Reported Respiratory: Shortness of Breath Cardiovascular: No Symptoms Reported Gastrointestinal: Other (DISTENTION) Genitourinary: Incontinence Musculoskeletal: No Symptoms Reported Skin: No Symptoms Reported Neurological: Weakness, Other (AMS) - Physical Exam Vital Signs: Temperature 98.4 F Pulse Rate [Apical] 93 Pulse Rate 91 Respiratory Rate 20 Blood Pressure [Left Arm] 111/57 Blood Pressure [Standing] 121/71 Blood Pressure [Sitting] 125/77 Blood Pressure [Lying] 122/79 Blood Pressure 129/72 O2 Sat by Pulse Oximetry 97 Oriented: Unable to test Eyes: Normal Ear: Normal Nose: Normal Throat: Dry Respiratory: RML Diminished, RLL Diminished, LML Diminished, LLL Diminished Cardiovascular: Normal. negative: Edema : Normal Auscultation: Bowel Sounds: Normal Palpation: Other (MILD DIFFUSE DISTENTION) Skin: Decreased Turgur Musculoskeletal: Normal Mood Description: Flat Speech Pattern: Delayed (LIMITED VERBAL RESPONSE), Slurred - Assessment/Plan (1) Altered mental status Status: Acute Plan: ADMIT ICU, CONTINUOUS CARDIAC MONITORING. CT HEAD ON ADMISSION IN ER. CE, SUPPLEMENTAL O2. [facility] CATH, ADMISSION CXR. AM LABS, NEURO CHECKS, STRICT I& OS (2) Lethargic Status: Acute (3) Increased ammonia level Status: Acute (4) Pneumonia Status: Acute (5) Colon cancer Status: Acute - Allergies Allergies/Adverse Reactions: Allergies Allergy/AdvReac Type Severity Reaction Status Date / Time No Known Drug Allergies Allergy Verified 07/16/18 07:32
--- NOTE | 2019-03-25 17:42 | PCM.PROG ---
Progress Note - Progress Note for Day of Date of Exam: 03/25/19 - Subjective Subjective: 53 WF ER ADMISSION ON 03/24 WITH AMS, LETHARGIC. PT HAS PMH OF COLON CANCER, COMPLETED LAST CHEMO TREATMENT 2 WEEKS AGO. PT HAD ELEVATED AMMONIA LEVEL WITH NO HX OF LIVER DISEASE. PT CXR WITH PNEUMONIA. BC AND SPUTUM CULTURE ORDERED WITH RESP CONSULT FOR DUO NEBS AND SUPPLEMENTAL O2, ABG. PT STARTED ON IV ROCEPHIN AND CT ABD/PELVIS WITH CONTRAST ORDERED TO EVALUATE FOR ASCITES, METASTATIC DISEASE. PT DID OPEN HER EYES THIS AM, NO VERBAL RESPONSES, FAMILY REPORTS SHE DID SAY A FEW WORDS EARLIER. REPEAT AMMONIA LEVELS, CONTINUE LACTULOSE - Past Medical Family Social History Past Med/Fam/Surg Hx: No changes since H&P Allergies: Allergies No Known Drug Allergies Allergy (Verified 07/16/18 07:32) - Review of Systems ROS: No change since H&P - Vital Signs and I&O's Vital Signs: Temperature 98.6 F Pulse Rate [Apical] 93 Pulse Rate 102 Respiratory Rate 42 Blood Pressure [Left Arm] 111/57 Blood Pressure [Standing] 121/71 Blood Pressure [Sitting] 125/77 Blood Pressure [Lying] 122/79 Blood Pressure 114/65 O2 Sat by Pulse Oximetry 99 Intake and Output: Intake & Output 03/23/19 03/24/19 03/25/19 03/26/19 11:59 11:59 11:59 11:59 Intake Total 3222 / 3222 Output Total 5550 / 5550 Balance -2328 / -2328 - Physical Exam Oriented: Unable to test Eyes: Normal Ear: Normal Nose: Normal Throat: Dry Respiratory: Diminished, Wheezes Cardiovascular: Normal. negative: Edema : Normal Auscultation: Bowel Sounds: Normal Palpation: Other (MILD DIFFUSE DISTENTION) Tenderness: Normal Skin: Decreased Turgur Musculoskeletal: Normal Mood Description: Flat Speech Pattern: Delayed (LIMITED VERBAL RESPONSE), Slurred - Laboratory and Diagnostics Result Diagrams: 03/25/19 04:06 03/25/19 04:06 Labs: Laboratory WBC 2.2 X10^3/uL (3.6-10.0) L 03/25/19 04:06 RBC 2.47 X10^6/uL (3.5-5.4) L 03/25/19 04:06 Hgb 8.5 g/dL (12.0-16.0) L 03/25/19 04:06 Hct 24.8 % (36.0-47.0) L 03/25/19 04:06 MCV 100.3 fL (80.0-100.0) H 03/25/19 04:06 MCH 34.5 pg (27.0-34.0) H 03/25/19 04:06 MCHC 34.4 g/dL (33.0-35.0) 03/25/19 04:06 RDW 16.3 % (11.6-16.5) 03/25/19 04:06 Plt Count 112 X10^3/uL (150.0-450.0) L 03/25/19 04:06 Plt Count Comment Decreased (ADEQUATE) A 03/25/19 04:06 MPV 7.5 fL (7.4-11.0) 03/25/19 04:06 Neut % (Auto) 41.3 % (42.0-75.0) L 03/25/19 04:06 Lymph % (Auto) 42.4 % (21.0-51.0) 03/25/19 04:06 [place] % (Auto) 12.4 % (0.0-13.0) 03/25/19 04:06 Eos % (Auto) 3.2 % (0.9-2.9) H 03/25/19 04:06 Baso % (Auto) 0.7 % (0.2-1.0) 03/25/19 04:06 Neut # (Auto) 0.9 x10^3/uL (2.2-4.8) L 03/25/19 04:06 Lymph # (Auto) 0.9 X10^3/uL (1.3-2.9) L 03/25/19 04:06 [place] # (Auto) 0.3 x10^3/uL (0.3-0.8) 03/25/19 04:06 Eos # (Auto) 0.1 x10^3/uL (0.0-0.2) 03/25/19 04:06 Baso # (Auto) 0.0 X10^3/uL (0.0-0.1) 03/25/19 04:06 Absolute Nucleated RBC 0.0 /100WBC 03/25/19 04:06 Total Counted 100 03/25/19 04:06 Neutrophils % (Manual) 40 % (39-76) 03/25/19 04:06 Lymphocytes % (Manual) 44 % (13-43) H 03/25/19 04:06 Monocytes % (Manual) 15 % (4-9) H 03/25/19 04:06 Eosinophils % (Manual) 1 % (0-6) 03/25/19 04:06 Plt Morphology Comment Normal (NORMAL) 03/25/19 04:06 RBC Morphology Normal (NORMAL) 03/25/19 04:06 INR Target Range - 03/24/19 10:33 INR 1.08 (0.8-1.3) 03/24/19 10:33 APTT 30.1 SECONDS (22.9-36.5) 03/24/19 10:33 PTT Comment - 03/24/19 10:33 Sample Site Rbra 03/25/19 10:15 ABG pH 7.440 (7.35-7.45) 03/25/19 10:15 ABG pCO2 38.0 mmHg (35.0-45.0) 03/25/19 10:15 ABG pO2 73.0 mmHg (80.0-100.0) L 03/25/19 10:15 ABG HCO3 25.8 mmol/L (22-26) 03/25/19 10:15 ABG O2 Saturation 95.0 % (90-100) 03/25/19 10:15 ABG Base Excess 1.7 mmol/L (-2.0-2.0) 03/25/19 10:15 Shade Test N/a 03/25/19 10:15 A-a Gradient 29.0 mmHg 03/25/19 10:15 FiO2 21.0 03/25/19 10:15 Blood Gas Comments Pt tanya well eb 03/25/19 10:15 Sodium 143 mmol/L (136-145) 03/25/19 04:06 Corrected Sodium 143 mmol/L (136-145) 03/25/19 04:06 Potassium 3.6 mmol/L (3.5-5.1) 03/25/19 04:06 Chloride 109 mmol/L (98-107) H 03/25/19 04:06 Carbon Dioxide 24.1 mmol/L (21-32) 03/25/19 04:06 BUN 9 mg/dL (7-18) 03/25/19 04:06 Creatinine 1.21 mg/dL (0.55-1.02) H 03/25/19 04:06 Est GFR (MDRD) Af Amer > 60 (>60) 03/25/19 04:06 Est GFR (MDRD) Non-Af 50 (>60) L 03/25/19 04:06 Glucose 112 mg/dL (65-99) H 03/25/19 04:06 POC Glucose (mg/dL) 107 mg/dL (65-99) H 03/25/19 16:16 Lactic Acid 1.0 mmol/L (0.4-2.0) 03/25/19 09:55 Calcium 8.8 mg/dL (8.5-10.1) 03/25/19 04:06 Corrected Calcium 9.6 mg/dL (8.5-10.1) 03/25/19 04:06 Total Bilirubin 1.30 mg/dL (0.2-1.0) H 03/25/19 04:06 AST 67 Units/L (15-37) H 03/25/19 04:06 ALT 36 Units/L (12-78) 03/25/19 04:06 Alkaline Phosphatase 149 Units/L (46-116) H 03/25/19 04:06 Ammonia 58 umol/L (11-32) H 03/25/19 04:06 Creatine Kinase 563 Units/L (26-192) H 03/24/19 10:33 CK-MB (CK-2) 1.8 ng/mL (0-4.0) 03/24/19 10:33 CK/CKMB % Calc 0.3 % (<4) 03/24/19 10:33 Troponin I < 0.02 ng/mL (0-1.5) 03/24/19 10:33 Total Protein 6.4 g/dL (6.4-8.2) 03/25/19 04:06 Albumin 3.0 g/dL (3.4-5.0) L 03/25/19 04:06 Globulin 3.4 g/dL (2.5-4.5) 03/25/19 04:06 Albumin/Globulin Ratio 0.9 Ratio (1.1-2.1) L 03/25/19 04:06 Specimen Type Catherized urine 03/25/19 04:40 Urine Color Pale yellow (YELLOW) 03/25/19 04:40 Urine Appearance Clear (CLEAR) 03/25/19 04:40 Urine pH 7.0 (5.0 - 8.0) 03/25/19 04:40 Ur Specific [place] 1.010 (1.000-1.030) 03/25/19 04:40 Urine Protein 1+ (NEGATIVE) 03/25/19 04:40 Urine Glucose (UA) Negative (NEGATIVE) 03/25/19 04:40 Urine Ketones Negative (NEGATIVE) 03/25/19 04:40 Urine Occult Blood 2+ (NEGATIVE) 03/25/19 04:40 Urine Nitrite Negative (NEGATIVE) 03/25/19 04:40 Urine Bilirubin Negative (NEGATIVE) 03/25/19 04:40 Urine Urobilinogen 1+ (NORMAL) 03/25/19 04:40 Ur Leukocyte Esterase 1+ (NEGATIVE) 03/25/19 04:40 Urine RBC 5-10 /HPF (NONE SEEN) 03/25/19 04:40 Urine WBC 10-20 /HPF (NONE SEEN) 03/25/19 04:40 Ur Squamous Epith Cells Few /HPF (NEGATIVE) 03/25/19 04:40 Urine Bacteria Negative /HPF (NEGATIVE) 03/25/19 04:40 Hyaline Casts Few /LPF (NEGATIVE) 03/24/19 10:58 Urine Mucus Few /HPF (NEGATIVE) 03/24/19 10:58 Ur Culture Indicated? Yes/culture set up 03/25/19 04:40 Urine Opiates Screen Positive (NEG=<300) A 03/24/19 10:58 Urine Methadone Screen Negative (NEG=<300) 03/24/19 10:58 Ur Barbiturates Screen Negative (NEG=<200) 03/24/19 10:58 Ur Phencyclidine Scrn Negative (NEG=<25) 03/24/19 10:58 Ur Amphetamines Screen Negative (NEG=<1000) 03/24/19 10:58 U Benzodiazepines Scrn Positive (NEG=<200) A 03/24/19 10:58 Urine Cocaine Screen Negative (NEG=<300) 03/24/19 10:58 U Marijuana (THC) Screen Negative (NEG=<50) 03/24/19 10:58 - Plan (1) Altered mental status Status: Acute Plan: CONTINUOUS CARDIAC MONITORING. CT HEAD ON ADMISSION IN ER. BLOOD SPUTUM AND URINE CULTURE ORDERED, SUPPLEMENTAL O2. [facility] CATH CARE, AM CXR, CT ABD PELVIS. AM LABS, NEURO CHECKS, STRICT I& OS (2) Lethargic Status: Acute (3) Increased ammonia level Status: Acute (4) Pneumonia Status: Acute (5) Colon cancer Status: Acute
[2019-03-25] MEDS ORDERED: POTASSIUM CHL 60 MEQ/NS 0.45% 500 ML IV PRN (19:45)
[2019-03-25] MEDS ORDERED: POTASSIUM CHLORIDE LIQ 20 MEQ UDC PO PRN (19:45)
[2019-03-25] MEDS ORDERED: MICRO K EXTEN CAP 10 MEQ PO PRN (19:45)
[2019-03-25] MEDS ORDERED: K-RIDER 10 MEQ/NS 100 ML 10 MEQ/100 ML BAG IV PRN (19:45)
[2019-03-25] MEDS ORDERED: POTASSIUM CHL 40 MEQ/NS 0.45% 500 ML IV PRN (19:45)
[2019-03-25] MEDS ORDERED: KLOR-CON PO PRN (19:45)
[2019-03-25] MEDS: CHRONULAC PO PRN (21:06)
[2019-03-25] MEDS: DESYREL PO SCH (21:07)
[2019-03-25] MEDS: TOPAMAX TAB 100 MG PO SCH (21:08)
[2019-03-26] MEDS: NS 1000 ML 1,000 ML IV SCH ×4 (01:44→21:16)
[2019-03-26 06:41] LABS: BASOPHILS % (AUTO) 0.6 % (0.2-1.0); EOSINOPHILS # (AUTO) 0.1 x10^3/uL (0.0-0.2); EOSINOPHILS % (AUTO) 2.9 % (0.9-2.9); HEMATOCRIT 25.4 % (36.0-47.0); HEMOGLOBIN 8.9 g/dL (12.0-16.0); LYMPHOCYTES # (AUTO) 1.2 X10^3/uL (1.3-2.9); LYMPHOCYTES % (AUTO) 45.6 % (21.0-51.0); MEAN CORPUSCULAR HEMOGLOBIN 34.7 pg (27.0-34.0); MEAN CORPUSCULAR VOLUME 99.1 fL (80.0-100.0); MEAN PLATELET VOLUME 7.2 fL (7.4-11.0); MONOCYTES # (AUTO) 0.5 x10^3/uL (0.3-0.8); MONOCYTES % (AUTO) 17.7 % (0.0-13.0); NEUTROPHILS # (AUTO) 0.8 x10^3/uL (2.2-4.8); NEUTROPHILS % (AUTO) 33.2 % (42.0-75.0); PLATELET COUNT 150 X10^3/uL (150.0-450.0); RED BLOOD COUNT 2.56 X10^6/uL (3.5-5.4); WHITE BLOOD COUNT 2.6 X10^3/uL (3.6-10.0)
[2019-03-26 06:58] LABS: AMMONIA 45 umol/L (11-32)
[2019-03-26 07:03] LABS: ALANINE AMINOTRANSFERASE 30 Units/L (12-78); ALBUMIN 3.1 g/dL (3.4-5.0); ALKALINE PHOSPHATASE 140 Units/L (46-116); ASPARTATE AMINO TRANSFERASE 60 Units/L (15-37); BLOOD UREA NITROGEN 6 mg/dL (7-18); CARBON DIOXIDE 25.9 mmol/L (21-32); CHLORIDE 105 mmol/L (98-107); COR CA(FOR HYPOALB) 9.7 mg/dL (8.5-10.1); MAGNESIUM 1.5 mg/dL (1.7-2.9); SODIUM 143 mmol/L (136-145); TOTAL PROTEIN 6.6 g/dL (6.4-8.2); eGFR NON BLACK RACES 56 (>60)
[2019-03-26] MEDS: LOVENOX INJ 30 MG SYR SC SCH ×2 (09:26→21:03)
[2019-03-26] MEDS: CYMBALTA PO SCH (09:26)
[2019-03-26] MEDS: TOPAMAX TAB 100 MG PO SCH ×2 (09:28→21:00)
[2019-03-26] MEDS: ZESTORETIC 10/ 12.5MG PO SCH ×2 (09:28→21:01)
[2019-03-26] MEDS: ROCEPHIN VIAL 1 GRAM IVP SCH (09:28)
[2019-03-26] MEDS: PROTONIX TAB 40 MG PO SCH (09:28)
[2019-03-26] MEDS: MAGNESIUM SULFATE 1 GRAM/100 mL PREMIX 1 GM/100 ML BAG IV PRN ×2 (14:00→16:19)
--- NOTE | 2019-03-26 17:56 | PCM.PROG ---
Progress Note - Progress Note for Day of Date of Exam: 03/26/19 - Subjective Subjective: 53 WF ER ADMISSION ON 03/24 WITH AMS, LETHARGIC. PT HAS PMH OF COLON CANCER, COMPLETED LAST CHEMO TREATMENT 2 WEEKS AGO. PT HAD ELEVATED AMMONIA LEVEL WITH NO HX OF LIVER DISEASE. PT CXR WITH PNEUMONIA. BC AND SPUTUM CULTURE ORDERED WITH RESP CONSULT FOR DUO NEBS AND SUPPLEMENTAL O2, ABG. PT ON IV ROCEPHIN AND CT ABD/PELVIS WITH CONTRAST ORDERED REVEALING -No source of abdominal distention is identified on this examination. PT IS MORE AWAKE AND ALERT THIS AM, PT RESPONDING WELL THIS AM. PT AMMONIA LEVEL IMPROVING. PLAN TO CONTINUD PNEUMONIA PROTOCOL, K+REPLACEMENT. - Past Medical Family Social History Past Med/Fam/Surg Hx: No changes since H&P Allergies: Allergies No Known Drug Allergies Allergy (Verified 07/16/18 07:32) - Review of Systems ROS: No change since H&P - Vital Signs and I&O's Vital Signs: Temperature 98.2 F Pulse Rate [Apical] 93 Pulse Rate 79 Respiratory Rate 22 Blood Pressure [Left Arm] 111/57 Blood Pressure [Standing] 121/71 Blood Pressure [Sitting] 125/77 Blood Pressure [Lying] 122/79 Blood Pressure 98/59 O2 Sat by Pulse Oximetry 98 Intake and Output: Intake & Output 03/24/19 03/25/19 03/26/19 03/27/19 11:59 11:59 11:59 11:59 Intake Total 3222 / 3222 3570 / 3570 1320 / 1320 Output Total 5550 / 5550 6350 / 6350 1000 / 1000 Balance -2328 / -2328 -2780 / -2780 320 / 320 - Physical Exam Oriented: Unable to test Eyes: Normal Ear: Normal Nose: Normal Throat: Dry Respiratory: Diminished, Wheezes Cardiovascular: Normal. negative: Edema : Normal Auscultation: Bowel Sounds: Normal Tenderness: Normal Skin: Decreased Turgur Musculoskeletal: Normal Mood Description: Flat Speech Pattern: Delayed - Laboratory and Diagnostics Result Diagrams: 03/26/19 05:38 03/26/19 05:38 Labs: 03/25/19 04:40 Urine,Catheterized Urine Culture - Preliminary Laboratory WBC 2.6 X10^3/uL (3.6-10.0) L 03/26/19 05:38 RBC 2.56 X10^6/uL (3.5-5.4) L 03/26/19 05:38 Hgb 8.9 g/dL (12.0-16.0) L 03/26/19 05:38 Hct 25.4 % (36.0-47.0) L 03/26/19 05:38 MCV 99.1 fL (80.0-100.0) 03/26/19 05:38 MCH 34.7 pg (27.0-34.0) H 03/26/19 05:38 MCHC 35.0 g/dL (33.0-35.0) 03/26/19 05:38 RDW 17.0 % (11.6-16.5) H 03/26/19 05:38 Plt Count 150 X10^3/uL (150.0-450.0) 03/26/19 05:38 Plt Count Comment Decreased (ADEQUATE) A 03/25/19 04:06 MPV 7.2 fL (7.4-11.0) L 03/26/19 05:38 Neut % (Auto) 33.2 % (42.0-75.0) L 03/26/19 05:38 Lymph % (Auto) 45.6 % (21.0-51.0) 03/26/19 05:38 [place] % (Auto) 17.7 % (0.0-13.0) H 03/26/19 05:38 Eos % (Auto) 2.9 % (0.9-2.9) 03/26/19 05:38 Baso % (Auto) 0.6 % (0.2-1.0) 03/26/19 05:38 Neut # (Auto) 0.8 x10^3/uL (2.2-4.8) L 03/26/19 05:38 Lymph # (Auto) 1.2 X10^3/uL (1.3-2.9) L 03/26/19 05:38 [place] # (Auto) 0.5 x10^3/uL (0.3-0.8) 03/26/19 05:38 Eos # (Auto) 0.1 x10^3/uL (0.0-0.2) 03/26/19 05:38 Baso # (Auto) 0.0 X10^3/uL (0.0-0.1) 03/26/19 05:38 Absolute Nucleated RBC 0.1 /100WBC 03/26/19 05:38 Total Counted 100 03/25/19 04:06 Neutrophils % (Manual) 40 % (39-76) 03/25/19 04:06 Lymphocytes % (Manual) 44 % (13-43) H 03/25/19 04:06 Monocytes % (Manual) 15 % (4-9) H 03/25/19 04:06 Eosinophils % (Manual) 1 % (0-6) 03/25/19 04:06 Plt Morphology Comment Normal (NORMAL) 03/25/19 04:06 RBC Morphology Normal (NORMAL) 03/25/19 04:06 INR Target Range - 03/24/19 10:33 INR 1.08 (0.8-1.3) 03/24/19 10:33 APTT 30.1 SECONDS (22.9-36.5) 03/24/19 10:33 PTT Comment - 03/24/19 10:33 Sample Site Rbra 03/25/19 10:15 ABG pH 7.440 (7.35-7.45) 03/25/19 10:15 ABG pCO2 38.0 mmHg (35.0-45.0) 03/25/19 10:15 ABG pO2 73.0 mmHg (80.0-100.0) L 03/25/19 10:15 ABG HCO3 25.8 mmol/L (22-26) 03/25/19 10:15 ABG O2 Saturation 95.0 % (90-100) 03/25/19 10:15 ABG Base Excess 1.7 mmol/L (-2.0-2.0) 03/25/19 10:15 Shade Test N/a 03/25/19 10:15 A-a Gradient 29.0 mmHg 03/25/19 10:15 FiO2 21.0 03/25/19 10:15 Blood Gas Comments Pt tanya well eb 03/25/19 10:15 Sodium 143 mmol/L (136-145) 03/26/19 05:38 Corrected Sodium TNP 03/26/19 05:38 Potassium 2.9 mmol/L (3.5-5.1) L* 03/26/19 05:38 Chloride 105 mmol/L (98-107) 03/26/19 05:38 Carbon Dioxide 25.9 mmol/L (21-32) 03/26/19 05:38 BUN 6 mg/dL (7-18) L 03/26/19 05:38 Creatinine 1.10 mg/dL (0.55-1.02) H 03/26/19 05:38 Est GFR (MDRD) Af Amer > 60 (>60) 03/26/19 05:38 Est GFR (MDRD) Non-Af 56 (>60) L 03/26/19 05:38 Glucose 92 mg/dL (65-99) 03/26/19 05:38 POC Glucose (mg/dL) 93 mg/dL (65-99) 03/26/19 16:28 Lactic Acid 1.0 mmol/L (0.4-2.0) 03/25/19 09:55 Calcium 9.0 mg/dL (8.5-10.1) 03/26/19 05:38 Corrected Calcium 9.7 mg/dL (8.5-10.1) 03/26/19 05:38 Magnesium 1.5 mg/dL (1.7-2.9) L 03/26/19 05:38 Total Bilirubin 1.40 mg/dL (0.2-1.0) H 03/26/19 05:38 AST 60 Units/L (15-37) H 03/26/19 05:38 ALT 30 Units/L (12-78) 03/26/19 05:38 Alkaline Phosphatase 140 Units/L (46-116) H 03/26/19 05:38 Ammonia 45 umol/L (11-32) H 03/26/19 05:38 Creatine Kinase 563 Units/L (26-192) H 03/24/19 10:33 CK-MB (CK-2) 1.8 ng/mL (0-4.0) 03/24/19 10:33 CK/CKMB % Calc 0.3 % (<4) 03/24/19 10:33 Troponin I < 0.02 ng/mL (0-1.5) 03/24/19 10:33 Total Protein 6.6 g/dL (6.4-8.2) 03/26/19 05:38 Albumin 3.1 g/dL (3.4-5.0) L 03/26/19 05:38 Globulin 3.5 g/dL (2.5-4.5) 03/26/19 05:38 Albumin/Globulin Ratio 0.9 Ratio (1.1-2.1) L 03/26/19 05:38 Specimen Type Catherized urine 03/25/19 04:40 Urine Color Pale yellow (YELLOW) 03/25/19 04:40 Urine Appearance Clear (CLEAR) 03/25/19 04:40 Urine pH 7.0 (5.0 - 8.0) 03/25/19 04:40 Ur Specific [place] 1.010 (1.000-1.030) 03/25/19 04:40 Urine Protein 1+ (NEGATIVE) 03/25/19 04:40 Urine Glucose (UA) Negative (NEGATIVE) 03/25/19 04:40 Urine Ketones Negative (NEGATIVE) 03/25/19 04:40 Urine Occult Blood 2+ (NEGATIVE) 03/25/19 04:40 Urine Nitrite Negative (NEGATIVE) 03/25/19 04:40 Urine Bilirubin Negative (NEGATIVE) 03/25/19 04:40 Urine Urobilinogen 1+ (NORMAL) 03/25/19 04:40 Ur Leukocyte Esterase 1+ (NEGATIVE) 03/25/19 04:40 Urine RBC 5-10 /HPF (NONE SEEN) 03/25/19 04:40 Urine WBC 10-20 /HPF (NONE SEEN) 03/25/19 04:40 Ur Squamous Epith Cells Few /HPF (NEGATIVE) 03/25/19 04:40 Urine Bacteria Negative /HPF (NEGATIVE) 03/25/19 04:40 Hyaline Casts Few /LPF (NEGATIVE) 03/24/19 10:58 Urine Mucus Few /HPF (NEGATIVE) 03/24/19 10:58 Ur Culture Indicated? Yes/culture set up 03/25/19 04:40 Urine Opiates Screen Positive (NEG=<300) A 03/24/19 10:58 Urine Methadone Screen Negative (NEG=<300) 03/24/19 10:58 Ur Barbiturates Screen Negative (NEG=<200) 03/24/19 10:58 Ur Phencyclidine Scrn Negative (NEG=<25) 03/24/19 10:58 Ur Amphetamines Screen Negative (NEG=<1000) 03/24/19 10:58 U Benzodiazepines Scrn Positive (NEG=<200) A 03/24/19 10:58 Urine Cocaine Screen Negative (NEG=<300) 03/24/19 10:58 U Marijuana (THC) Screen Negative (NEG=<50) 03/24/19 10:58 - Plan (1) Altered mental status Status: Acute Plan: CONTINUOUS CARDIAC MONITORING. CT HEAD ON ADMISSION IN ER. BLOOD SPUTUM AND URINE CULTURE ORDERED, SUPPLEMENTAL O2. [facility] CATH CARE, AM CXR, CT ABD PELVIS. AM LABS, NEURO CHECKS, STRICT I& OS (2) Lethargic Status: Acute (3) Increased ammonia level Status: Acute (4) Pneumonia Status: Acute Plan: IV ATBX, RESP CONSULT (5) Colon cancer Status: Acute
[2019-03-26] MEDS: DESYREL PO SCH (21:00)
[2019-03-26] MEDS: CHRONULAC PO PRN (21:01)
[2019-03-27 05:23] LABS: BASOPHILS % (AUTO) 0.7 % (0.2-1.0); EOSINOPHILS # (AUTO) 0.1 x10^3/uL (0.0-0.2); EOSINOPHILS % (AUTO) 3.1 % (0.9-2.9); LYMPHOCYTES # (AUTO) 1.6 X10^3/uL (1.3-2.9); LYMPHOCYTES % (AUTO) 56.4 % (21.0-51.0); MEAN CORPUSCULAR HEMOGLOBIN 34.7 pg (27.0-34.0); MEAN CORPUSCULAR HGB CONC 34.7 g/dL (33.0-35.0); MEAN CORPUSCULAR VOLUME 100.1 fL (80.0-100.0); MEAN PLATELET VOLUME 7.5 fL (7.4-11.0); MONOCYTES # (AUTO) 0.4 x10^3/uL (0.3-0.8); MONOCYTES % (AUTO) 14.3 % (0.0-13.0); NEUTROPHILS # (AUTO) 0.7 x10^3/uL (2.2-4.8); NEUTROPHILS % (AUTO) 25.5 % (42.0-75.0); PLATELET COUNT 150 X10^3/uL (150.0-450.0); RED CELL DISTRIBUTION WIDTH 16.4 % (11.6-16.5); WHITE BLOOD COUNT 2.9 X10^3/uL (3.6-10.0)
[2019-03-27 05:29] LABS: ALANINE AMINOTRANSFERASE 25 Units/L (12-78); ALKALINE PHOSPHATASE 132 Units/L (46-116); ASPARTATE AMINO TRANSFERASE 43 Units/L (15-37); BLOOD UREA NITROGEN 7 mg/dL (7-18); CALCIUM 9.2 mg/dL (8.5-10.1); CARBON DIOXIDE 24.7 mmol/L (21-32); CHLORIDE 107 mmol/L (98-107); CREATININE 0.98 mg/dL (0.55-1.02); MAGNESIUM 2.2 mg/dL (1.7-2.9); SODIUM 142 mmol/L (136-145); TOTAL PROTEIN 6.6 g/dL (6.4-8.2); eGFR NON BLACK RACES > 60 (>60)
[2019-03-27] MEDS: NS 1000 ML 1,000 ML IV SCH ×3 (06:02→22:48)
[2019-03-27] MEDS: LOVENOX INJ 30 MG SYR SC SCH ×2 (09:01→21:13)
[2019-03-27] MEDS: CYMBALTA PO SCH (09:01)
[2019-03-27] MEDS: TOPAMAX TAB 100 MG PO SCH ×2 (09:02→21:12)
[2019-03-27] MEDS: PROTONIX TAB 40 MG PO SCH (09:02)
[2019-03-27] MEDS: ROCEPHIN VIAL 1 GRAM IVP SCH (09:02)
[2019-03-27] MEDS: NEURONTIN CAP 300 MG PO PRN ×2 (09:04→21:12)
[2019-03-27] MEDS: ZESTORETIC 10/ 12.5MG PO SCH ×2 (09:04→21:15)
[2019-03-27] MEDS: K-DUR TAB 20 MEQ PO PRN (09:05)
--- NOTE | 2019-03-27 10:36 | RAD ---
HISTORY: Altered mental status. Shortness of breath. Pneumonia. Study: AP portable chest Comparison: 03/25/2019 Findings: There is minimal patchy infiltrate the left lung base. The findings suggesting vascular congestion have resolved. The heart size normal. Mild tortuosity of the aorta is present. Moderate osteopenia is noted. IMPRESSION: 1. The findings suggesting pulmonary vascular congestion have resolved. 2. Findings suggesting minimal atelectatic change/infiltrate in the left lung base. Reported By:
[2019-03-27] MEDS: DUONEB 0.5 MG/3 MG NEB SCH ×3 (12:35→21:16)
[2019-03-27] MEDS: CHRONULAC PO PRN (21:11)
[2019-03-27] MEDS: DESYREL PO SCH (21:12)
[2019-03-28] MEDS: DUONEB 0.5 MG/3 MG NEB SCH ×3 (05:45→20:29)
[2019-03-28 06:08] LABS: BASOPHILS % (AUTO) 0.8 % (0.2-1.0); EOSINOPHILS # (AUTO) 0.1 x10^3/uL (0.0-0.2); EOSINOPHILS % (AUTO) 2.7 % (0.9-2.9); HEMATOCRIT 28.7 % (36.0-47.0); HEMOGLOBIN 9.8 g/dL (12.0-16.0); LYMPHOCYTES # (AUTO) 1.2 X10^3/uL (1.3-2.9); LYMPHOCYTES % (AUTO) 44.9 % (21.0-51.0); MEAN CORPUSCULAR HEMOGLOBIN 34.2 pg (27.0-34.0); MEAN CORPUSCULAR HGB CONC 34.2 g/dL (33.0-35.0); MEAN CORPUSCULAR VOLUME 100.1 fL (80.0-100.0); MEAN PLATELET VOLUME 6.8 fL (7.4-11.0); MONOCYTES # (AUTO) 0.5 x10^3/uL (0.3-0.8); NEUTROPHILS # (AUTO) 0.9 x10^3/uL (2.2-4.8); NEUTROPHILS % (AUTO) 34.6 % (42.0-75.0); PLATELET COUNT 175 X10^3/uL (150.0-450.0); RED BLOOD COUNT 2.87 X10^6/uL (3.5-5.4); WHITE BLOOD COUNT 2.7 X10^3/uL (3.6-10.0)
[2019-03-28 06:16] LABS: AMMONIA 42 umol/L (11-32)
[2019-03-28] MEDS: NS 1000 ML 1,000 ML IV SCH ×4 (06:24→21:02)
[2019-03-28 06:28] LABS: ALANINE AMINOTRANSFERASE 20 Units/L (12-78); ALBUMIN 3.7 g/dL (3.4-5.0); ALKALINE PHOSPHATASE 143 Units/L (46-116); ASPARTATE AMINO TRANSFERASE 40 Units/L (15-37); BLOOD UREA NITROGEN 4 mg/dL (7-18); CALCIUM 9.6 mg/dL (8.5-10.1); CARBON DIOXIDE 20.7 mmol/L (21-32); CHLORIDE 107 mmol/L (98-107); CREATININE 1.06 mg/dL (0.55-1.02); SODIUM 142 mmol/L (136-145); eGFR NON BLACK RACES 58 (>60)
[2019-03-28] MEDS: TOPAMAX TAB 100 MG PO SCH ×2 (09:13→20:27)
[2019-03-28] MEDS: LOVENOX INJ 30 MG SYR SC SCH ×2 (09:13→20:28)
[2019-03-28] MEDS: ROCEPHIN VIAL 1 GRAM IVP SCH (09:13)
[2019-03-28] MEDS: PROTONIX TAB 40 MG PO SCH (09:14)
[2019-03-28] MEDS: CYMBALTA PO SCH (09:15)
[2019-03-28] MEDS: DESYREL PO SCH (20:26)
[2019-03-28] MEDS: NEURONTIN CAP 100 MG PO PRN (20:28)
[2019-03-28] MEDS: K-DUR TAB 20 MEQ PO PRN (21:12)
[2019-03-28] MEDS: TYLENOL 325 MG TAB PO PRN (21:12)
[2019-03-29] MEDS: NS 1000 ML 1,000 ML IV SCH ×3 (01:08→13:01)
[2019-03-29] MEDS: DUONEB 0.5 MG/3 MG NEB SCH ×4 (05:25→21:27)
[2019-03-29 06:10] LABS: BASOPHILS % (AUTO) 0.8 % (0.2-1.0); EOSINOPHILS # (AUTO) 0.1 x10^3/uL (0.0-0.2); EOSINOPHILS % (AUTO) 2.9 % (0.9-2.9); HEMATOCRIT 23.8 % (36.0-47.0); HEMOGLOBIN 8.1 g/dL (12.0-16.0); LYMPHOCYTES # (AUTO) 1.1 X10^3/uL (1.3-2.9); LYMPHOCYTES % (AUTO) 44.8 % (21.0-51.0); MEAN CORPUSCULAR HEMOGLOBIN 34.5 pg (27.0-34.0); MEAN CORPUSCULAR HGB CONC 34.3 g/dL (33.0-35.0); MEAN CORPUSCULAR VOLUME 100.7 fL (80.0-100.0); MEAN PLATELET VOLUME 7.1 fL (7.4-11.0); MONOCYTES # (AUTO) 0.3 x10^3/uL (0.3-0.8); NEUTROPHILS % (AUTO) 38.5 % (42.0-75.0); PLATELET COUNT 124 X10^3/uL (150.0-450.0); RED BLOOD COUNT 2.36 X10^6/uL (3.5-5.4); RED CELL DISTRIBUTION WIDTH 16.8 % (11.6-16.5); WHITE BLOOD COUNT 2.6 X10^3/uL (3.6-10.0)
[2019-03-29 06:30] LABS: ALANINE AMINOTRANSFERASE 9 Units/L (12-78); ALBUMIN 2.9 g/dL (3.4-5.0); ALKALINE PHOSPHATASE 112 Units/L (46-116); ASPARTATE AMINO TRANSFERASE 29 Units/L (15-37); BLOOD UREA NITROGEN 7 mg/dL (7-18); CALCIUM 8.9 mg/dL (8.5-10.1); CARBON DIOXIDE 17.1 mmol/L (21-32); CHLORIDE 112 mmol/L (98-107); COR CA(FOR HYPOALB) 9.8 mg/dL (8.5-10.1); CREATININE 1.03 mg/dL (0.55-1.02); SODIUM 144 mmol/L (136-145); eGFR NON BLACK RACES > 60 (>60)
[2019-03-29] MEDS: ROCEPHIN VIAL 1 GRAM IVP SCH (08:13)
[2019-03-29] MEDS: TOPAMAX TAB 100 MG PO SCH ×2 (08:14→20:43)
[2019-03-29] MEDS: CYMBALTA PO SCH (08:14)
[2019-03-29] MEDS: PROTONIX TAB 40 MG PO SCH (08:14)
[2019-03-29] MEDS: LOVENOX INJ 30 MG SYR SC SCH ×2 (08:14→20:44)
[2019-03-29] MEDS: K-DUR TAB 20 MEQ PO PRN (08:15)
[2019-03-29] MEDS: ZESTRIL TAB 10 MG PO SCH (14:03)
[2019-03-29] MEDS: NEURONTIN CAP 100 MG PO PRN (20:43)
[2019-03-29] MEDS: DESYREL PO SCH (20:44)
[2019-03-29] MEDS: TYLENOL 325 MG TAB PO PRN (21:39)
[2019-03-30] MEDS: NS 1000 ML 1,000 ML IV SCH ×4 (04:13→13:21)
[2019-03-30] MEDS: DUONEB 0.5 MG/3 MG NEB SCH ×2 (05:12→14:00)
[2019-03-30 05:50] LABS: BASOPHILS % (AUTO) 0.8 % (0.2-1.0); EOSINOPHILS # (AUTO) 0.1 x10^3/uL (0.0-0.2); EOSINOPHILS % (AUTO) 2.6 % (0.9-2.9); HEMOGLOBIN 8.9 g/dL (12.0-16.0); LYMPHOCYTES # (AUTO) 1.7 X10^3/uL (1.3-2.9); LYMPHOCYTES % (AUTO) 49.9 % (21.0-51.0); MEAN CORPUSCULAR HEMOGLOBIN 34.5 pg (27.0-34.0); MEAN CORPUSCULAR HGB CONC 34.4 g/dL (33.0-35.0); MEAN CORPUSCULAR VOLUME 100.4 fL (80.0-100.0); MEAN PLATELET VOLUME 7.3 fL (7.4-11.0); MONOCYTES # (AUTO) 0.3 x10^3/uL (0.3-0.8); MONOCYTES % (AUTO) 9.8 % (0.0-13.0); NEUTROPHILS # (AUTO) 1.3 x10^3/uL (2.2-4.8); NEUTROPHILS % (AUTO) 36.9 % (42.0-75.0); PLATELET COUNT 131 X10^3/uL (150.0-450.0); RED BLOOD COUNT 2.59 X10^6/uL (3.5-5.4); RED CELL DISTRIBUTION WIDTH 16.5 % (11.6-16.5); WHITE BLOOD COUNT 3.4 X10^3/uL (3.6-10.0)
[2019-03-30 06:11] LABS: ALANINE AMINOTRANSFERASE 12 Units/L (12-78); ALBUMIN 3.4 g/dL (3.4-5.0); ALKALINE PHOSPHATASE 126 Units/L (46-116); ASPARTATE AMINO TRANSFERASE 33 Units/L (15-37); BLOOD UREA NITROGEN 4 mg/dL (7-18); CALCIUM 10.2 mg/dL (8.5-10.1); CARBON DIOXIDE 23.5 mmol/L (21-32); CHLORIDE 109 mmol/L (98-107); CREATININE 1.05 mg/dL (0.55-1.02); SODIUM 142 mmol/L (136-145); TOTAL PROTEIN 6.7 g/dL (6.4-8.2); eGFR NON BLACK RACES 59 (>60)
[2019-03-30] MEDS: CYMBALTA PO SCH (08:20)
[2019-03-30] MEDS: ROCEPHIN VIAL 1 GRAM IVP SCH (08:20)
[2019-03-30] MEDS: LOVENOX INJ 30 MG SYR SC SCH (08:21)
[2019-03-30] MEDS: PROTONIX TAB 40 MG PO SCH (08:21)
[2019-03-30] MEDS: TOPAMAX TAB 100 MG PO SCH (08:21)
[2019-03-30] MEDS: K-DUR TAB 20 MEQ PO PRN (08:28)
[2019-03-30] MEDS: ZESTRIL TAB 10 MG PO SCH (12:51)
[2019-03-30 14:02] VITALS: BP 126/79
== END 2019-03-30 14:59 | disposition home health service (06) | DRG 194 ==
LOC: ER 09:58 → ICU 14:04
PROVIDERS: ADMIT Internal Medicine; ATTEND Internal Medicine
DX: R26.89 Other abnormalities of gait and mobility; G25.3 Myoclonus; E72.20 Disorder of urea cycle metabolism, unspecified; I10 Essential (primary) hypertension; Z92.21 Personal history of antineoplastic chemotherapy; E87.6 Hypokalemia; J18.8 Other pneumonia, unspecified organism; I95.89 Other hypotension; C18.9 Malignant neoplasm of colon, unspecified; R41.82 Altered mental status, unspecified
CPT/HCPCS: 36415; 36600; 51702; 70450; 71010; 71045; 74177; 80053; 80307; 81001; 82140; 82550; 82553; 82803; 83605; 83735; 84484; 85025; 85610; 85730; 87040; 87086; 93005; 94640; 96365; 96367; 97110; 97162; 97167; 99285; A4216; A4222; G0434; J0696; J1650; J1940; J3475; J3480; J3490; J7030; J7620

== ENCOUNTER 2020-01-08 22:41 | Observation (INO) ==
[2020-01-08 23:02] VITALS: BMI 31.5
--- NOTE | 2020-01-08 23:23 | DR.GENAD ---
HPI - PCP Primary Care Physician: MIGUELANGEL - Complaint/Symptoms Chief Complaint Doctors Comments: Patient states she woke up throwing up and could not remember anything. Family member states the last time she lost her memory was when she had problems with her liver not being able to metabolize her medicines and Dr. Interiano took her off all her medicines. She states she has been vomiting all day with back pain, headache in the back of her head with blurred vision. She denies cold, cough, chest pain but has been having SOB. She denies tobacco or alcohol usage. States she was diagnosed with colon cancer six months ago and has finished her chemo and radiation therapy but she said she did not go back to her cancer doctor. Patient crying states she was afraid that her cancer came back and she could not go through chemo again. Chief Complaint:: PT CRYING HYSTERICALLY PT STATES" I CAN'T REMEMBER ANYTHING. I DON'T KNOW WHATS WRONG WITH ME" - Nurses notes reviewed Nurses Notes Review: Yes - Source History Provided: Patient - Mode of Arrival Mode of Arrival: Wheelchair - Timing Onset of Chief Complaint: 01/08/20 Came on: Suddenly - Duration Duration: Constant How lon Duration: Days - Location Location: occipital headache - Severity Severity: Mild - Modifying Factors Worsens:: nothing Improves:: nothing PMH - PMH Past Medical History: Yes Past Medical History: Hypertension, Liver Disease Past Medical History Comment: COLON CANCER Past Surgical History: Yes Surgical History: Appendectomy, Bowel Resection, , Cholecystectomy, Hysterectomy - Family History History of Family Medical Conditions: Yes Family Medical History: Diabetes Mellitus, Cancer, [place] - Social History Alcohol Use: None Do you use any recreational Drugs:: No Lives With: Family Lives Where: Home - Travel Risk Coronavirus risk:travel/contact w/high risk person: No Has patient experienced Coronavirus symptoms: No - infectious screening Have you traveled outside the country in the last 6 months?: No Isolation: Standard ROS - Review of Systems Constitutional: No Symptoms Reported, Chills. negative: See HPI, Diaphoresis, Fever, Malaise, Weakness, Irritable, Fatigue, Loss of Appetite, Other Eyes: No Symptoms Reported, Blurred Vision ENTM: No Symptoms Reported Respiratoy: No Symptoms Reported, Short of Breath. negative: See HPI, Produ ctive Cough, Non-Productive Cough, Moist Cough, Dry Cough, Hacking Cough, Barking Cough, Brassy Cough, Orthopnea, Stridor, Wheezing, Hemoptysis, Other Cardiovascular: No Symptoms Reported. negative: See HPI, Chest Pain, Edema, Palpitations, Syncope, Cyanosis, Skin Mottling, Other Gastrointestinal/Abdominal: No Symptoms Reported, Nausea, Vomiting. negative: See HPI, Abdominal Pain, Constipation, Diarrhea, Food Intolerance, Other Genitourinary: No Symptoms Reported. negative: See HPI, Discharge, Dysuria, Frequency, Hematuria, Pain, Bleeding, Other Neurological: No Symptoms Reported Musculoskeletal: No Symptoms Reported Integumentary: No Symptoms Reported. negative: See HPI, Change in Color, Change in Hair/Nails, Dryness, Lesions, Lumps, Rash, Itching, Wound, Bruises, Juandice, Other Hematologic/Lymphatic: No Symptoms Reported. negative: See HPI, Anemia, Blood Clots, Easy Bleeding, Easy Bruising, Swollen Glands, Lymphadenopathy, Other Endocrine: No Symptoms Reported Psychiatric: No Symptoms Reported, Anxiety PE - General Limitations: No Limitations General Appearance: Alert, In Distress (slight) - Head Head Exam: Normal Inspection, Atraumatic, Normocephalic - Eyes Eye exam: Normal Appearance, PERRL, EOMI. negative: Scleral Icterus, Conjunctival Injection, Nystagmus, Miosis, Mydrasis, Periorbital Swelling, Periorbital Tenderness, Other - ENT ENT Exam: Normal Exam, Normal Oropharynx, Normal External Ear Exam, Mucous Membranes Moist, TM's Normal Bilaterally External Ear Exam: Normal External Inspection TM/Canal Exam: Bilateral Normal Nose Exam: Normal Nose Exam. negative: Sinus Tenderness, Nasal Deviation, Crepitus, Septal Hematoma, Laceration, Abrasion, Other Mouth Exam: Normal Inspection. negative: Drooling, Trismus, Lip Swelling, T ongue Elevation, Tongue Swelling, Laceration, Other Throat Exam: Normal Inspection. negative: Tonsillar Erythema, Tonsillomegaly, Tonsillar Exudate, R Peritonsillar Mass, L Peritonsillar Mass, Muffled Voice, Other - Neck Neck Exam: Normal Inspection, Full ROM, Trachea Midline. negative: Tenderness, Meningismus, Lymphadenopathy, Thyromegaly, Other - Chest Chest Inspection: Normal Inspection, Symmetric Chest Wall Rise. negative: Tenderness, Rash, Abscess, Other - Respiratory Respiratory Exam: Normal Lung Sounds Bilat Respiratory Exam: Bilateral Clear to Auscultation - Cardiovascular Cardiovascular Exam: Regular Rate, Normal Rhythm, Tachycardia, Normal Heart Sounds. negative: Bradycardia, Irregular Rhythm, Systolic Murmur, Diastolic Murmur, Rubs, Gallop, Clicks, JVD, +S1, +S2, +S3, +S4, Other - Abdominal Exam Abdominal Exam: Normal Inspection, Normal Bowel Sounds, Soft, Tenderness (RLQ and suprapubic tenderness). negative: Distention, Guarding, Rebound, Rigidity, Dimnished Bowel Sounds, Hyperactive Bowel Sounds, Hypoactive Bowel Sounds, Organomegaly, Trauma, Incision, Ascites, Mass, Bruit, Pulsatile Mass, Hernia, Other Abdominal Tenderness: RLQ, Suprapubic, Moderate - Extremities Extremities Exam: Normal Inspection, Full ROM, Normal Capillary Refill. negative: Tenderness, Edema, Joint Swelling, Calf Tenderness, Other - Back Back Exam: Normal Inspection, Full ROM. negative: Tenderness, (R) CVA Tenderness, (L) CVA Tenderness, Muscle Spasm, Paraspinal Tenderness, Vertebral Tenderness, Rashes, (R) Sciatic Notch Tenderness, (L) Sciatic Notch Tendern, (R) Straight Leg Raise, (L) Straight Leg Raise, Other - Neurologic Neurological Exam: Alert, Oriented X3, CN II-XII Intact, Normal Gait, Reflexes Normal - Psychiatric Psychiatric Exam: Normal Affect, Normal Mood, Agitated, Anxious. negative: Depressed, Flat Affect, Manic, Homicidal Ideation, Suicidal Ideation, Other - Skin Skin Exam: Warm, Dry, Intact, Normal Color. negative: Rash, Cyanosis, Diaphoresis, Erythema, Pallor, Mottled, Other - Vital Signs Vitals: Temperature 99.2 F Pulse Rate 110 Respiratory Rate 22 Blood Pressure [Left Arm] 140/95 Blood Pressure 186/94 O2 Sat by Pulse Oximetry 97 Course - Reevaluation 1st: - Consultation Called: 02:34 Call Returned: 02:34 (Dr. Vasquez to admit) - Education/Counseling Education/Counseling: Patient, Family Educated On: Treatment, Diagnosis, Needs for Follow Up ROR - Labs Reviewed Laboratory Results Reviewed?: Yes (All labs and x-ray results reviewed and discussed with patient) Result Diagrams: 01/08/20 23:40 01/08/20 23:40 - XRAY XRAY Interpreted by: Radiologist (CT head: No evidence of an acute intracranial bleed. No midline shift.) - EKG Rate: 100 Emerson: Normal Rhythm: NSR, ST Block: None Hypertrophy: LVH ST: Nonsp - Labs Reviewed Laboratory: WBC 17.0 X10^3/uL (3.6-10.0) H 01/08/20 23:40 RBC 3.87 X10^6/uL (3.5-5.4) 01/08/20 23:40 Hgb 12.0 g/dL (12.0-16.0) 01/08/20 23:40 Hct 35.3 % (36.0-47.0) L 01/08/20 23:40 MCV 91.3 fL (80.0-100.0) 01/08/20 23:40 MCH 31.0 pg (27.0-34.0) 01/08/20 23:40 MCHC 34.0 g/dL (33.0-35.0) 01/08/20 23:40 RDW 14.7 % (11.6-16.5) 01/08/20 23:40 Plt Count 271 X10^3/uL (150.0-450.0) 01/08/20 23:40 MPV 8.0 fL (7.4-11.0) 01/08/20 23:40 Neut % (Auto) 82.0 % (42.0-75.0) H 01/08/20 23:40 Lymph % (Auto) 13.1 % (21.0-51.0) L 01/08/20 23:40 Emery % (Auto) 3.7 % (0.0-13.0) 01/08/20 23:40 Eos % (Auto) 0.3 % (0.9-2.9) L 01/08/20 23:40 Baso % (Auto) 0.9 % (0.2-1.0) 01/08/20 23:40 Neut # (Auto) 14.0 x10^3/uL (2.2-4.8) H 01/08/20 23:40 Lymph # (Auto) 2.2 X10^3/uL (1.3-2.9) 01/08/20 23:40 Emery # (Auto) 0.6 x10^3/uL (0.3-0.8) 01/08/20 23:40 Eos # (Auto) 0.0 x10^3/uL (0.0-0.2) 01/08/20 23:40 Baso # (Auto) 0.1 X10^3/uL (0.0-0.1) 01/08/20 23:40 Absolute Nucleated RBC 0.1 /100WBC 01/08/20 23:40 PT 12.6 SECONDS (11.8-14.3) 01/08/20 23:40 INR Target Range - 01/08/20 23:40 INR 0.97 (0.8-1.3) 01/08/20 23:40 APTT 26.8 SECONDS (22.9-36.5) 01/08/20 23:40 PTT Comment - 01/08/20 23:40 Sodium 140 mmol/L (136-145) 01/08/20 23:40 Corrected Sodium 141 mmol/L (136-145) 01/08/20 23:40 Potassium 3.9 mmol/L (3.5-5.1) 01/08/20 23:40 Chloride 102 mmol/L (98-107) 01/08/20 23:40 Carbon Dioxide 28.3 mmol/L (21-32) 01/08/20 23:40 BUN 20 mg/dL (7-18) H 01/08/20 23:40 Creatinine 1.10 mg/dL (0.55-1.02) H 01/08/20 23:40 Est GFR (MDRD) Af Amer > 60 (>60) 01/08/20 23:40 Est GFR (MDRD) Non-Af 55 (>60) L 01/08/20 23:40 Glucose 142 mg/dL (65-99) H 01/08/20 23:40 Calcium 9.2 mg/dL (8.5-10.1) 01/08/20 23:40 Corrected Calcium 9.8 mg/dL (8.5-10.1) 01/08/20 23:40 Magnesium 2.1 mg/dL (1.7-2.9) 01/08/20 23:40 Total Bilirubin 0.20 mg/dL (0.2-1.0) 01/08/20 23:40 AST 19 Units/L (15-37) 01/08/20 23:40 ALT 20 Units/L (12-78) 01/08/20 23:40 Alkaline Phosphatase 102 Units/L (46-116) 01/08/20 23:40 Ammonia 19 umol/L (11-32) 01/08/20 23:40 Creatine Kinase 67 Units/L (26-192) 01/08/20 23:40 CK-MB (CK-2) 1.0 ng/mL (0-4.0) 01/08/20 23:40 CK/CKMB % Calc 1.5 % (<4) 01/08/20 23:40 Troponin I < 0.02 ng/mL (0-1.5) 01/08/20 23:40 Total Protein 7.5 g/dL (6.4-8.2) 01/08/20 23:40 Albumin 3.3 g/dL (3.4-5.0) L 01/08/20 23:40 Globulin 4.2 g/dL (2.5-4.5) 01/08/20 23:40 Albumin/Globulin Ratio 0.8 Ratio (1.1-2.1) L 01/08/20 23:40 Amylase 15 Units/L (25-115) L 01/08/20 23:40 Lipase 61 Units/L (73-393) L 01/08/20 23:40 Specimen Type Catherized urine 01/09/20 01:31 Urine Color Yellow (YELLOW) 01/09/20 01:31 Urine Appearance Clear (CLEAR) 01/09/20 01:31 Urine pH 5.0 (5.0 - 8.0) 01/09/20 01:31 Ur Specific [place] 1.030 (1.000-1.030) 01/09/20 01:31 Urine Protein 3+ (NEGATIVE) 01/09/20 01:31 Urine Glucose (UA) Negative (NEGATIVE) 01/09/20 01:31 Urine Ketones Negative (NEGATIVE) 01/09/20 01:31 Urine Occult Blood 1+ (NEGATIVE) 01/09/20 01:31 Urine Nitrite Negative (NEGATIVE) 01/09/20 01:31 Urine Bilirubin Negative (NEGATIVE) 01/09/20 01:31 Urine Urobilinogen Normal (NORMAL) 01/09/20 01:31 Ur Leukocyte Esterase Negative (NEGATIVE) 01/09/20 01:31 Urine RBC 0-2 /HPF (0-3) 01/09/20 01:31 Urine WBC 0-2 /HPF (0-5) 01/09/20 01:31 Ur Squamous Epith Cells Few /HPF (NEGATIVE) 01/09/20 01:31 Amorphous Sediment 1+ /HPF (NEGATIVE) 01/09/20 01:31 Urine Bacteria Trace /HPF (NEGATIVE) 01/09/20 01:31 Ur Culture Indicated? No/not indicated 01/09/20 01:31 Urine Opiates Screen Positive (NEG=<300) A 01/09/20 01:30 Urine Methadone Screen Negative (NEG=<300) 01/09/20 01:30 Ur Barbiturates Screen Negative (NEG=<200) 01/09/20 01:30 Ur Phencyclidine Scrn Negative (NEG=<25) 01/09/20 01:30 Ur Amphetamines Screen Negative (NEG=<1000) 01/09/20 01:30 U Benzodiazepines Scrn Negative (NEG=<200) 01/09/20 01:30 Urine Cocaine Screen Negative (NEG=<300) 01/09/20 01:30 U Marijuana (THC) Screen Negative (NEG=<50) 01/09/20 01:30 - XRAY Xray Findings: CT lumbar spine: No evidence of acute fracture or dislocation. CT abdomen and pelvis: S/P cholecystectomy. Postsurgical changes are seen in the sigmoid colon most likely from partial bowel resection. Appendix is normal. No evidence of . (DORENE ALVAREZ) Opioid - Opioid Risk Tool Age (Obb box if 16-45): No History of Preadolescent Sexual Abuse: No Total: 0 Total Score Risk Category: Low Risk - Diagnosis Discharge Problem: Amnesia memory loss, Bilateral leg weakness, Hyperglycemia, History of colon cancer, Anxiety neurosis Altered mental status, unspecified Qualifiers: Altered mental status type: unspecified Qualified Code(s): R41.82 - Altered mental status, unspecified - Discharge Plan Disposition: ADMITTED INPATIENT Condition: Stable - Follow ups/Referrals Follow ups/Referrals: ROGER MEANS [Primary Care Provider] - 3 days - Instructions
[2020-01-08] MEDS ORDERED: NS 1000 ML 1,000 ML ONE (23:28)
[2020-01-08] MEDS: NS 1000 ML 1,000 ML IV SCH (23:42)
[2020-01-08 23:51] LABS: BASOPHILS # (AUTO) 0.1 X10^3/uL (0.0-0.1); BASOPHILS % (AUTO) 0.9 % (0.2-1.0); EOSINOPHILS % (AUTO) 0.3 % (0.9-2.9); HEMATOCRIT 35.3 % (36.0-47.0); LYMPHOCYTES # (AUTO) 2.2 X10^3/uL (1.3-2.9); LYMPHOCYTES % (AUTO) 13.1 % (21.0-51.0); MEAN CORPUSCULAR VOLUME 91.3 fL (80.0-100.0); MONOCYTES # (AUTO) 0.6 x10^3/uL (0.3-0.8); MONOCYTES % (AUTO) 3.7 % (0.0-13.0); PLATELET COUNT 271 X10^3/uL (150.0-450.0); RED BLOOD COUNT 3.87 X10^6/uL (3.5-5.4); RED CELL DISTRIBUTION WIDTH 14.7 % (11.6-16.5)
[2020-01-08 23:59] LABS: AMMONIA 19 umol/L (11-32)
[2020-01-09 00:10] LABS: BLOOD UREA NITROGEN 20 mg/dL (7-18); CALCIUM 9.2 mg/dL (8.5-10.1); CARBON DIOXIDE 28.3 mmol/L (21-32); CHLORIDE 102 mmol/L (98-107); COR NA(FOR HYPERGLY) 141 mmol/L (136-145); SODIUM 140 mmol/L (136-145); TROPONIN I < 0.02 ng/mL (0-1.5); eGFR NON BLACK RACES 55 (>60)
[2020-01-09 00:13] LABS: ALANINE AMINOTRANSFERASE 20 Units/L (12-78); ALBUMIN 3.3 g/dL (3.4-5.0); ALKALINE PHOSPHATASE 102 Units/L (46-116); AMYLASE 15 Units/L (25-115); ASPARTATE AMINO TRANSFERASE 19 Units/L (15-37); CKMB % 1.5 % (<4); COR CA(FOR HYPOALB) 9.8 mg/dL (8.5-10.1); CREATINE KINASE 67 Units/L (26-192); LIPASE 61 Units/L (73-393); MAGNESIUM 2.1 mg/dL (1.7-2.9); TOTAL PROTEIN 7.5 g/dL (6.4-8.2)
--- NOTE | 2020-01-09 00:32 | CT ---
STUDY: CT HEAD WITHOUT IV CONTRASTCOMPARISON: NoneTECHNIQUE: axial images were acquired of the head without IV contrast. Coronal and sagittal images were provided. All images were reviewed in a variety of windows and levels.RADIATION REDUCTION TECHNIQUE: Automated exposure control, Adjustment of the mA and/or kV according to patient size, or iterative reconstruction techniques were used.HISTORY: amsFINDINGS:There is no evidence of an acute intracranial bleed.There is no evidence of a mass or midline shift.There is no evidence of an extra-axial fluid collection.The gutierres-white matter differentiation is within normal limits.The visualized bones are unremarkable.The visualized sinuses are clear.The mastoid air cells are well-aerated.IMPRESSION:THERE IS NO EVIDENCE OF AN ACUTE INTRACRANIAL BLEEDElectronically signed by: Reggie Felipe (Jan 09, 2020 00:30:58)
--- NOTE | 2020-01-09 00:34 | CT ---
STUDY: CT ABDOMEN AND PELVIS WITHOUT IV CONTRASTCOMPARISON: NoneTECHNIQUE: Axial images were obtained of the abdomen and pelvis without IV contrast. Sagittal and coronal reformatted images were provided. All images were reviewed in a variety of windows and levels.RADIATION REDUCTION TECHNIQUE: Automated exposure control, adjustment of the mA or kV according to patient size, or iterative reconstruction techniques were used.HISTORY: ruq painFINDINGS:Please note that lack of IV contrast does limit evaluation of the soft tissues and vascular detail.The visualized lower lung zones are clear. The heart size is normal.The liver, spleen, pancreas, adrenal glands, and kidneys are grossly unremarkable.The patient is status post cholecystectomy.There is no evidence of stones or signs of obstructive uropathy.The stomach, small bowel, and colon are grossly unremarkable. A few scattered diverticula are seen without evidence of diverticulitis. There are no inflammatory changes in the right lower quadrant to suggest secondary signs of acute appendicitis. Postsurgical changes are seen in the sigmoid colon which may be from partial bowel resection. Please correlate with patient's past surgical history. The appendix is not visualized.There is no evidence of retroperitoneal or mesenteric lymphadenopathy.The visualized bones demonstrate degenerative changes. There are no concerning lytic or blastic lesions identified.IMPRESSION:1. Status post cholecystectomy2. Postsurgical changes are seen in the sigmoid colon most likely from partial bowel resection3. The appendix is not visualized. There are no secondary signs of acute appendicitis near the cecum. Close monitoring with follow-up may be obtained as clinically indicated.4. No evidence of stones, signs of obstructive uropathy, or CT evidence of diverticulitisElectronically signed by: Reggie Felipe (Jan 09, 2020 00:33:05)
[2020-01-09 01:51] LABS: BILIRUBIN,URINE NEGATIVE (NEGATIVE); BLOOD/HEMOGLOBIN,URINE 1+ (NEGATIVE); GLUCOSE, URINE NEGATIVE (NEGATIVE); KETONES,URINE NEGATIVE (NEGATIVE); LEUKOCYTE ESTERASE ,URINE NEGATIVE (NEGATIVE); NITRITES,URINE NEGATIVE (NEGATIVE); PROTEIN,URINE 3+ (NEGATIVE); UROBILINOGEN,URINE NORMAL (NORMAL)
[2020-01-09 01:59] LABS: AMORPHOUS SEDIMENT,UR 1+ /HPF (NEGATIVE); APPEARANCE,URINE CLEAR (CLEAR); BACTERIA,URINE TRACE /HPF (NEGATIVE); COLOR,URINE YELLOW (YELLOW); RBC,URINE 0-2 /HPF (0-3); SQUAMOUS EPITHELIAL CELL,UR FEW /HPF (NEGATIVE)
--- NOTE | 2020-01-09 02:09 | CT ---
STUDY: CT LUMBAR SPINE WITHOUT IV CONTRASTCOMPARISON: NoneTECHNIQUE: axial images were acquired of the lumbar spine without IV contrast. Coronal and sagittal images were provided. All images were reviewed in a variety of windows and levels.RADIATION REDUCTION TECHNIQUE: Automated exposure control, Adjustment of the mA and/or kV according to patient size, or iterative reconstruction techniques were used.HISTORY: low back painFINDINGS:There is no evidence of an acute osseous fracture or subluxationThere are no abnormal areas of increased attenuation in the spinal canal to suggest an epidural hematoma.The visualized paraspinal muscles are unremarkable.IMPRESSION:1. NO EVIDENCE OF ACUTE FRACTURE OR SUBLUXATION.Electronically signed by: Reggie Felipe (Jan 09, 2020 02:07:59)
[2020-01-09] MEDS ORDERED: TORADOL 30 MG VIAL IVP ONE (02:57)
[2020-01-09] MEDS ORDERED: TORADOL 30 MG VIAL ONE (02:59)
[2020-01-09] MEDS ORDERED: NS 1000 ML 1,000 ML ONE (03:22)
--- NOTE | 2020-01-09 03:48 | RAD ---
STUDY: FRONTAL VIEW CHESTCOMPARISON: December 20, 2019HISTORY: Difficulty breathingFINDINGS:Exam is limited due to poor inspiratory effort which can result in exaggeration of the cardiac silhouette size and pulmonary vasculature.Subsegmental atelectasis is noted.No focal consolidation is seen.The heart size is within normal limits.The mediastinum is unremarkable.There is no evidence of pleural effusion or gross pneumothorax.The trachea is midline.IMPRESSION:1. No focal consolidation is seen.Electronically signed by: Reggie Felipe (Jan 09, 2020 03:47:30)
[2020-01-09 06:05] LABS: BASOPHILS # (AUTO) 0.1 X10^3/uL (0.0-0.1); BASOPHILS % (AUTO) 0.6 % (0.2-1.0); EOSINOPHILS # (AUTO) 0.1 x10^3/uL (0.0-0.2); EOSINOPHILS % (AUTO) 0.9 % (0.9-2.9); HEMATOCRIT 32.9 % (36.0-47.0); LYMPHOCYTES # (AUTO) 2.4 X10^3/uL (1.3-2.9); LYMPHOCYTES % (AUTO) 18.5 % (21.0-51.0); MEAN CORPUSCULAR HEMOGLOBIN 30.3 pg (27.0-34.0); MEAN CORPUSCULAR HGB CONC 33.4 g/dL (33.0-35.0); MEAN CORPUSCULAR VOLUME 90.7 fL (80.0-100.0); MEAN PLATELET VOLUME 7.9 fL (7.4-11.0); MONOCYTES # (AUTO) 0.6 x10^3/uL (0.3-0.8); MONOCYTES % (AUTO) 4.6 % (0.0-13.0); NEUTROPHILS % (AUTO) 75.4 % (42.0-75.0); PLATELET COUNT 240 X10^3/uL (150.0-450.0); RED BLOOD COUNT 3.62 X10^6/uL (3.5-5.4); RED CELL DISTRIBUTION WIDTH 14.9 % (11.6-16.5); WHITE BLOOD COUNT 13.2 X10^3/uL (3.6-10.0)
[2020-01-09 06:14] LABS: ALANINE AMINOTRANSFERASE 17 Units/L (12-78); ALKALINE PHOSPHATASE 89 Units/L (46-116); ASPARTATE AMINO TRANSFERASE 17 Units/L (15-37); BLOOD UREA NITROGEN 19 mg/dL (7-18); CALCIUM 8.5 mg/dL (8.5-10.1); CARBON DIOXIDE 28.9 mmol/L (21-32); CHLORIDE 104 mmol/L (98-107); COR CA(FOR HYPOALB) 9.3 mg/dL (8.5-10.1); CREATININE 0.94 mg/dL (0.55-1.02); SODIUM 141 mmol/L (136-145); TOTAL PROTEIN 6.9 g/dL (6.4-8.2); eGFR NON BLACK RACES > 60 (>60)
[2020-01-09 06:28] LABS: CHOL/HDL RATIO 2.9 (0.0-5.0)
[2020-01-09] MEDS: CATAPRES TAB 0.1 MG PO SCH ×2 (09:07→21:09)
[2020-01-09] MEDS ORDERED: APRESOLINE INJ 20 MG VIAL IVP PRN (10:33)
[2020-01-09] MEDS ORDERED: NORCO 10/325 TAB PO SCH (11:00)
--- NOTE | 2020-01-09 11:13 | DR.H&P ---
H&P History & Physical for Day of: H&P Date: 01/09/20 Chief Complaint Chief Complaint: Memory loss, N/V Allergies Allergies Allergy/AdvReac Type Severity Reaction Status Date / Time No Known Drug Allergies Allergy Verified 09/10/19 15:37 History of Present Illness History of Present Illness: Ms. Ledesma is a 54y/o female with a PMH of Atrial fibrillation, HTN, chronic back pain, Colon cancer s/p resection and chemotherapy presented with nausea, vomiting and memory loss. Patient states when she woke up yesterday, she could not remember anything. She lives with her spouse at home. She denies any trauma or falls, not being sick lately. She said she remembers going to the grocery store and vomiting on her way back. She is not able to provide much details. She states she was started on Temazepam about a week ago and she takes it at bedtime. She also takes Lorcet once a day but she didn't take it yesterday. She denies taking more than her prescribed medicat ions. She states her legs hurt more and her numbness in her feet is worse than usual. She does have neuropathy and takes duloxetine. She is not clearly able to tell me if she was walking yesterday, she states she uses a walker sometimes. She also had a headache which is slightly better. Denies fever or chills, no cough or SOB. No sick contact. ED work up: CXR (-) CTAP: prior colon resection, no acute abnormalities CT-head: no acute process Lumbar CT: negative UDS: opiates Plan: neuro checks q2hrs, MRI brain for Saturday, advance diet as tolerated, Zofran prn. Hold [place] and temazepam for now. Hydralazine prn for BP control. PT/OT Past Medical History Past Medical History: Hypertension and Liver Disease Past Surgical History Surgical History: Appendectomy, Bowel Resection, , Cholecystectomy and Hysterectomy Family History Family Medical History: Diabetes Mellitus, Cancer and [place] Social History Alcohol Use: None Drug Use: None Medications Home Medications: No Known Drug Allergies Allergy (Verified 09/10/19 15:37) CONTINUE taking the following medications cetirizine 10 mg PO DAILY 01/08/20 [History] clonidine HCl 0.1 mg PO BID 01/08/20 [History] duloxetine 60 mg PO DAILY 01/08/20 [History] estradiol 2 mg PO DAILY 01/08/20 [History] hydrocodone-acetaminophen 1 tab PO TID 01/08/20 [History] mirtazapine [Remeron] 30 mg PO DAILY 01/08/20 [History] temazepam 15 mg PO HS 01/08/20 [History] Labs Result Diagrams: 01/09/20 05:15 01/09/20 05:15 Labs: Laboratory WBC 13.2 X10^3/uL (3.6-10.0) H 01/09/20 05:15 RBC 3.62 X10^6/uL (3.5-5.4) 01/09/20 05:15 Hgb 11.0 g/dL (12.0-16.0) L 01/09/20 05:15 Hct 32.9 % (36.0-47.0) L 01/09/20 05:15 MCV 90.7 fL (80.0-100.0) 01/09/20 05:15 MCH 30.3 pg (27.0-34.0) 01/09/20 05:15 MCHC 33.4 g/dL (33.0-35.0) 01/09/20 05:15 RDW 14.9 % (11.6-16.5) 01/09/20 05:15 Plt Count 240 X10^3/uL (150.0-450.0) 01/09/20 05:15 MPV 7.9 fL (7.4-11.0) 01/09/20 05:15 Neut % (Auto) 75.4 % (42.0-75.0) H 01/09/20 05:15 Lymph % (Auto) 18.5 % (21.0-51.0) L 01/09/20 05:15 [place] % (Auto) 4.6 % (0.0-13.0) 01/09/20 05:15 Eos % (Auto) 0.9 % (0.9-2.9) 01/09/20 05:15 Baso % (Auto) 0.6 % (0.2-1.0) 01/09/20 05:15 Neut # (Auto) 10.0 x10^3/uL (2.2-4.8) H 01/09/20 05:15 Lymph # (Auto) 2.4 X10^3/uL (1.3-2.9) 01/09/20 05:15 [place] # (Auto) 0.6 x10^3/uL (0.3-0.8) 01/09/20 05:15 Eos # (Auto) 0.1 x10^3/uL (0.0-0.2) 01/09/20 05:15 Baso # (Auto) 0.1 X10^3/uL (0.0-0.1) 01/09/20 05:15 Absolute Nucleated RBC 0.0 /100WBC 01/09/20 05:15 PT 12.6 SECONDS (11.8-14.3) 01/08/20 23:40 INR Target Range - 01/08/20 23:40 INR 0.97 (0.8-1.3) 01/08/20 23:40 APTT 26.8 SECONDS (22.9-36.5) 01/08/20 23:40 PTT Comment - 01/08/20 23:40 Sodium 141 mmol/L (136-145) 01/09/20 05:15 Corrected Sodium TNP 01/09/20 05:15 Potassium 3.9 mmol/L (3.5-5.1) 01/09/20 05:15 Chloride 104 mmol/L (98-107) 01/09/20 05:15 Carbon Dioxide 28.9 mmol/L (21-32) 01/09/20 05:15 BUN 19 mg/dL (7-18) H 01/09/20 05:15 Creatinine 0.94 mg/dL (0.55-1.02) 01/09/20 05:15 Est GFR (MDRD) Af Amer > 60 (>60) 01/09/20 05:15 Est GFR (MDRD) Non-Af > 60 (>60) 01/09/20 05:15 Glucose 99 mg/dL (65-99) 01/09/20 05:15 Calcium 8.5 mg/dL (8.5-10.1) 01/09/20 05:15 Corrected Calcium 9.3 mg/dL (8.5-10.1) 01/09/20 05:15 Magnesium 2.1 mg/dL (1.7-2.9) 01/08/20 23:40 Total Bilirubin 0.30 mg/dL (0.2-1.0) 01/09/20 05:15 AST 17 Units/L (15-37) 01/09/20 05:15 ALT 17 Units/L (12-78) 01/09/20 05:15 Alkaline Phosphatase 89 Units/L (46-116) 01/09/20 05:15 Ammonia 19 umol/L (11-32) 01/08/20 23:40 Creatine Kinase 67 Units/L (26-192) 01/08/20 23:40 CK-MB (CK-2) 1.0 ng/mL (0-4.0) 01/08/20 23:40 CK/CKMB % Calc 1.5 % (<4) 01/08/20 23:40 Troponin I < 0.02 ng/mL (0-1.5) 01/08/20 23:40 Total Protein 6.9 g/dL (6.4-8.2) 01/09/20 05:15 Albumin 3.0 g/dL (3.4-5.0) L 01/09/20 05:15 Globulin 3.9 g/dL (2.5-4.5) 01/09/20 05:15 Albumin/Globulin Ratio 0.8 Ratio (1.1-2.1) L 01/09/20 05:15 Triglycerides 195 mg/dL (0-150) H 01/09/20 05:15 Cholesterol 174 mg/dL (0-200) 01/09/20 05:15 LDL Cholesterol, Calc 74 mg/dL (0-100) 01/09/20 05:15 HDL Cholesterol 61 mg/dL (40-60) H 01/09/20 05:15 Cholesterol/HDL Ratio 2.9 (0.0-5.0) 01/09/20 05:15 Amylase 15 Units/L (25-115) L 01/08/20 23:40 Lipase 61 Units/L (73-393) L 01/08/20 23:40 Specimen Type Catherized urine 01/09/20 01:31 Urine Color Yellow (YELLOW) 01/09/20 01:31 Urine Appearance Clear (CLEAR) 01/09/20 01:31 Urine pH 5.0 (5.0 - 8.0) 04/04/20 01:31 Ur Specific [place] 1.030 (1.000-1.030) 01/09/20 01:31 Urine Protein 3+ (NEGATIVE) 01/09/20 01:31 Urine Glucose (UA) Negative (NEGATIVE) 01/09/20 01:31 Urine Ketones Negative (NEGATIVE) 01/09/20 01:31 Urine Occult Blood 1+ (NEGATIVE) 01/09/20 01:31 Urine Nitrite Negative (NEGATIVE) 01/09/20 01: Urine Bilirubin Negative (NEGATIVE) 01/09/20 01:31 Urine Urobilinogen Normal (NORMAL) 01/09/20 01:31 Ur Leukocyte Esterase Negative (NEGATIVE) 01/09/20 01:31 Urine RBC 0-2 /HPF (0-3) 01/09/20 01:31 Urine WBC 0-2 /HPF (0-5) 01/09/20 01:31 Ur Squamous Epith Cells Few /HPF (NEGATIVE) 01/09/20 01:31 Amorphous Sediment 1+ /HPF (NEGATIVE) 01/09/20 01:31 Urine Bacteria Trace /HPF (NEGATIVE) 01/09/20 01:31 Ur Culture Indicated? No/not indicated 01/09/20 01:31 Urine Opiates Screen Positive (NEG=<300) A 01/09/20 01:30 Urine Methadone Screen Negative (NEG=<300) 01/09/20 01:30 Ur Barbiturates Screen Negative (NEG=<200) 01/09/20 01:30 Ur Phencyclidine Scrn Negative (NEG=<25) 01/09/20 01:30 Ur Amphetamines Screen Negative (NEG=<1000) 01/09/20 01:30 U Benzodiazepines Scrn Negative (NEG=<200) 01/09/20 01:30 Urine Cocaine Screen Negative (NEG=<300) 01/09/20 01:30 U Marijuana (THC) Screen Negative (NEG=<50) 01/09/20 01:30 Review of Systems Constitutional: Weakness; denies Fever Eyes: No Symptoms Reported ENT: No Symptoms Reported Respiratory: No Symptoms Reported Cardiovascular: No Symptoms Reported Gastrointestinal: Nausea, Vomiting and Abdominal Pain; denies Diarrhea Genitourinary: No Symptoms Reported Musculoskeletal: Back Pain and Leg Pain Skin: No Symptoms Reported Neurological: Other (loss of memory ) Physical Exam Vital Signs: Temperature 98.5 F Pulse Rate [Apical] 85 Pulse Rate 110 Respiratory Rate 20 Blood Pressure [Left Arm] 176/87 Blood Pressure 186/94 O2 Sat by Pulse Oximetry 98 Oriented: Normal Eyes: Normal Ear: Normal Nose: Normal Respiratory: Clear Throughout Cardiovascular: Normal Auscultation: Bowel Sounds: Normal Tenderness: Periumbilical and Mild Skin: Normal Musculoskeletal: Leg (strength 1/5, not able to lift up both legs, limited ROM , numbness in both feet ) Psychiatric: Normal Mood Description: Anxious Affect: Anxious Speech Pattern: Clear and Appropriate Assessment/Plan (1) Bilateral leg weakness: Status: Acute (2) Amnesia memory loss: Status: Acute (3) Chronic back pain: Qualifiers: Back pain laterality: left Back pain location: low back pain Sciatica laterality: sciatica of left side Sciatica presence: with sciatica Qualified Code(s): M54.42 - Lumbago with sciatica, left side; G89.29 - Other chronic pain Status: Acute (4) Colon cancer: Qualifiers: Colon location: unspecified part of colon Qualified Code(s): C18.9 - Malignant neoplasm of colon, unspecified Status: Acute (5) Headache: Qualifiers: Headache chronicity pattern: chronic headache Headache type: tension- type Intractability: not intractable Qualified Code(s): G44.229 - Chronic tension-type headache, not intractable Status: Acute (6) Anxiety neurosis: Status: Acute (7) Atrial fibrillation: Qualifiers: Atrial fibrillation type: unspecified Qualified Code(s): I48.91 - Unspecified atrial fibrillation Status: Acute Review H&P Reviewed: Yes Patient was examined?: Yes
[2020-01-09] MEDS: CYMBALTA PO SCH (11:51)
[2020-01-09] MEDS: NS 1000 ML 1,000 ML IV SCH ×2 (18:07→19:31)
[2020-01-10] MEDS: NS 1000 ML 1,000 ML IV SCH ×3 (05:22→20:32)
[2020-01-10] MEDS: CYMBALTA PO SCH (09:17)
[2020-01-10] MEDS: CATAPRES TAB 0.1 MG PO SCH ×2 (09:17→20:08)
[2020-01-10 09:51] LABS: BASOPHILS # (AUTO) 0.1 X10^3/uL (0.0-0.1); BASOPHILS % (AUTO) 0.9 % (0.2-1.0); EOSINOPHILS # (AUTO) 0.3 x10^3/uL (0.0-0.2); EOSINOPHILS % (AUTO) 3.9 % (0.9-2.9); HEMATOCRIT 31.6 % (36.0-47.0); HEMOGLOBIN 10.8 g/dL (12.0-16.0); LYMPHOCYTES # (AUTO) 2.5 X10^3/uL (1.3-2.9); LYMPHOCYTES % (AUTO) 31.1 % (21.0-51.0); MEAN CORPUSCULAR HEMOGLOBIN 31.1 pg (27.0-34.0); MEAN CORPUSCULAR HGB CONC 34.1 g/dL (33.0-35.0); MEAN CORPUSCULAR VOLUME 91.3 fL (80.0-100.0); MEAN PLATELET VOLUME 7.6 fL (7.4-11.0); MONOCYTES # (AUTO) 0.4 x10^3/uL (0.3-0.8); NEUTROPHILS # (AUTO) 4.8 x10^3/uL (2.2-4.8); NEUTROPHILS % (AUTO) 59.1 % (42.0-75.0); PLATELET COUNT 194 X10^3/uL (150.0-450.0); RED BLOOD COUNT 3.46 X10^6/uL (3.5-5.4); RED CELL DISTRIBUTION WIDTH 14.4 % (11.6-16.5); WHITE BLOOD COUNT 8.1 X10^3/uL (3.6-10.0)
[2020-01-10 10:00] LABS: BLOOD UREA NITROGEN 9 mg/dL (7-18); CARBON DIOXIDE 28.8 mmol/L (21-32); CHLORIDE 103 mmol/L (98-107); CREATINE KINASE 37 Units/L (26-192); CREATININE 0.78 mg/dL (0.55-1.02); MAGNESIUM 2.1 mg/dL (1.7-2.9); SODIUM 139 mmol/L (136-145); eGFR NON BLACK RACES > 60 (>60)
[2020-01-10] MEDS ORDERED: KLOR-CON PO SCH (10:15)
--- NOTE | 2020-01-10 10:21 | PCM.PROG ---
Progress Note Progress Note for Day of Date of Exam: 01/10/20 Subjective Subjective: Patient seen at bedside, no overnight events. She states she is feeling a lot better today. She has been ambulating to the bathroom. She denies N/V/D, has been eating well. She states she heard a popping sound in her left hip every time she moves her leg. She does not remember if she fell at home. She denies pain or discomfort. She is able to move her legs a lot better today, improved strength in both lower legs. Plan: PT/OT, advance diet to cardiac, wean of oxygen, Replace K. CPK normal. Left Hip XR ordered to evaluate for acute fracture. Past Medical Family Social History Past Med/Fam/Surg Hx: No changes since H&P Allergies: Allergies No Known Drug Allergies Allergy (Verified 09/10/19 15:37) Review of Systems ROS: No change since H&P Vital Signs and I&O's Vital Signs: Temperature 98.1 F Pulse Rate [Apical] 79 Pulse Rate 110 Respiratory Rate 20 Blood Pressure [Left Arm] 143/88 Blood Pressure 186/94 O2 Sat by Pulse Oximetry 99 Intake and Output: Intake & Output 01/07/20 01/08/20 01/09/20 01/10/20 23:59 23:59 23:59 23:59 Intake Total 2530 / 2530 705 / 705 Balance 2530 / 2530 705 / 705 Physical Exam Oriented: Normal Eyes: Normal Ear: Normal Nose: Normal Respiratory: Normal Cardiovascular: Normal Auscultation: Bowel Sounds: Normal Tenderness: Normal Skin: Normal Musculoskeletal: Left (left hip crepitus noted ), Leg (LE strength improved today, 4/5 ) and [place] Psychiatric: Normal Mood Description: Calm Affect: Normal Speech Pattern: Clear and Appropriate Laboratory and Diagnostics Result Diagrams: 01/10/20 09:36 01/10/20 09:36 Labs: Laboratory WBC 8.1 X10^3/uL (3.6-10.0) 01/10/20 09:36 RBC 3.46 X10^6/uL (3.5-5.4) L 01/10/20 09:36 Hgb 10.8 g/dL (12.0-16.0) L 01/10/20 09:36 Hct 31.6 % (36.0-47.0) L 01/10/20 09:36 MCV 91.3 fL (80.0-100.0) 01/10/20 09:36 MCH 31.1 pg (27.0-34.0) 01/10/20 09:36 MCHC 34.1 g/dL (33.0-35.0) 01/10/20 09:36 RDW 14.4 % (11.6-16.5) 01/10/20 09:36 Plt Count 194 X10^3/uL (150.0-450.0) 01/10/20 09:36 MPV 7.6 fL (7.4-11.0) 01/10/20 09:36 Neut % (Auto) 59.1 % (42.0-75.0) 01/10/20 09:36 Lymph % (Auto) 31.1 % (21.0-51.0) 01/10/20 09:36 [place] % (Auto) 5.0 % (0.0-13.0) 01/10/20 09:36 Eos % (Auto) 3.9 % (0.9-2.9) H 01/10/20 09:36 Baso % (Auto) 0.9 % (0.2-1.0) 01/10/20 09:36 Neut # (Auto) 4.8 x10^3/uL (2.2-4.8) 01/10/20 09:36 Lymph # (Auto) 2.5 X10^3/uL (1.3-2.9) 01/10/20 09:36 [place] # (Auto) 0.4 x10^3/uL (0.3-0.8) 01/10/20 09:36 Eos # (Auto) 0.3 x10^3/uL (0.0-0.2) H 01/10/20 09:36 Baso # (Auto) 0.1 X10^3/uL (0.0-0.1) 01/10/20 09:36 Absolute Nucleated RBC 0.0 /100WBC 01/10/20 09:36 PT 12.6 SECONDS (11.8-14.3) 01/08/20 23:40 INR Target Range - 01/08/20 23:40 INR 0.97 (0.8-1.3) 01/08/20 23:40 APTT 26.8 SECONDS (22.9-36.5) 01/08/20 23:40 PTT Comment - 01/08/20 23:40 Sodium 139 mmol/L (136-145) 01/10/20 09:36 Corrected Sodium TNP 01/10/20 09:36 Potassium 3.4 mmol/L (3.5-5.1) L 01/10/20 09:36 Chloride 103 mmol/L (98-107) 01/10/20 09:36 Carbon Dioxide 28.8 mmol/L (21-32) 01/10/20 09:36 BUN 9 mg/dL (7-18) 01/10/20 09:36 Creatinine 0.78 mg/dL (0.55-1.02) 01/10/20 09:36 Est GFR (MDRD) Af Amer > 60 (>60) 01/10/20 09:36 Est GFR (MDRD) Non-Af > 60 (>60) 01/10/20 09:36 Glucose 95 mg/dL (65-99) 01/10/20 09:36 Calcium 8.0 mg/dL (8.5-10.1) L 01/10/20 09:36 Corrected Calcium 9.3 mg/dL (8.5-10.1) 01/09/20 05:15 Magnesium 2.1 mg/dL (1.7-2.9) 01/10/20 09:36 Total Bilirubin 0.30 mg/dL (0.2-1.0) 01/09/20 05:15 AST 17 Units/L (15-37) 01/09/20 05:15 ALT 17 Units/L (12-78) 01/09/20 05:15 Alkaline Phosphatase 89 Units/L (46-116) 01/09/20 05:15 Ammonia 19 umol/L (11-32) 01/08/20 23:40 Creatine Kinase 37 Units/L (26-192) 01/10/20 09:36 CK-MB (CK-2) 1.0 ng/mL (0-4.0) 01/08/20 23:40 CK/CKMB % Calc 1.5 % (<4) 01/08/20 23:40 Troponin I < 0.02 ng/mL (0-1.5) 01/08/20 23:40 Total Protein 6.9 g/dL (6.4-8.2) 01/09/20 05:15 Albumin 3.0 g/dL (3.4-5.0) L 01/09/20 05:15 Globulin 3.9 g/dL (2.5-4.5) 01/09/20 05:15 Albumin/Globulin Ratio 0.8 Ratio (1.1-2.1) L 01/09/20 05:15 Triglycerides 195 mg/dL (0-150) H 01/09/20 05:15 Cholesterol 174 mg/dL (0-200) 01/09/20 05:15 LDL Cholesterol, Calc 74 mg/dL (0-100) 01/09/20 05:15 HDL Cholesterol 61 mg/dL (40-60) H 01/09/20 05:15 Cholesterol/HDL Ratio 2.9 (0.0-5.0) 01/09/20 05:15 Amylase 15 Units/L (25-115) L 01/08/20 23:40 Lipase 61 Units/L (73-393) L 01/08/20 23:40 Specimen Type Catherized urine 01/09/20 01:31 Urine Color Yellow (YELLOW) 01/09/20 01:31 Urine Appearance Clear (CLEAR) 01/09/20 01:31 Urine pH 5.0 (5.0 - 8.0) 01/09/20 01:31 Ur Specific [place] 1.030 (1.000-1.030) 01/09/20 01:31 Urine Protein 3+ (NEGATIVE) 01/09/20 01:31 Urine Glucose (UA) Negative (NEGATIVE) 01/09/20 01:31 Urine Ketones Negative (NEGATIVE) 01/09/20 01:31 Urine Occult Blood 1+ (NEGATIVE) 01/09/20 01:31 Urine Nitrite Negative (NEGATIVE) 01/09/20 01: Urine Bilirubin Negative (NEGATIVE) 01/09/20 01:31 Urine Urobilinogen Normal (NORMAL) 01/09/20 01:31 Ur Leukocyte Esterase Negative (NEGATIVE) 01/09/20 01:31 Urine RBC 0-2 /HPF (0-3) 01/09/20 01:31 Urine WBC 0-2 /HPF (0-5) 01/09/20 01:31 Ur Squamous Epith Cells Few /HPF (NEGATIVE) 01/09/20 01:31 Amorphous Sediment 1+ /HPF (NEGATIVE) 01/09/20 01:31 Urine Bacteria Trace /HPF (NEGATIVE) 01/09/20 01:31 Ur Culture Indicated? No/not indicated 01/09/20 01:31 Urine Opiates Screen Positive (NEG=<300) A 01/09/20 01:30 Urine Methadone Screen Negative (NEG=<300) 01/09/20 01:30 Ur Barbiturates Screen Negative (NEG=<200) 01/09/20 01:30 Ur Phencyclidine Scrn Negative (NEG=<25) 01/09/20 01:30 Ur Amphetamines Screen Negative (NEG=<1000) 01/09/20 01:30 U Benzodiazepines Scrn Negative (NEG=<200) 01/09/20 01:30 Urine Cocaine Screen Negative (NEG=<300) 01/09/20 01:30 U Marijuana (THC) Screen Negative (NEG=<50) 01/09/20 01:30 Plan (1) Bilateral leg weakness: Status: Acute (2) Amnesia memory loss: Status: Acute (3) Chronic back pain: Status: Acute Qualifiers: Back pain laterality: left Back pain location: low back pain Sciatica laterality: sciatica of left side Sciatica presence: with sciatica Qualified Code(s): M54.42 - Lumbago with sciatica, left side; G89.29 - Other chronic pain (4) Colon cancer: Status: Acute Qualifiers: Colon location: unspecified part of colon Qualified Code(s): C18.9 - Malignant neoplasm of colon, unspecified (5) Headache: Status: Acute Qualifiers: Headache chronicity pattern: chronic headache Headache type: tension- type Intractability: not intractable Qualified Code(s): G44.229 - Chronic tension-type headache, not intractable (6) Anxiety neurosis: Status: Acute (7) Atrial fibrillation: Status: Acute Qualifiers: Atrial fibrillation type: unspecified Qualified Code(s): I48.91 - Unspecified atrial fibrillation
--- NOTE | 2020-01-10 12:59 | RAD ---
HISTORYLEFT HIP POPPING, UNCLEAR IF PATIENT HAD A FALL CAD, HTN, COLON CANCER, HYSTERECTOMY, APPENDECTOMY, BOWEL RESECTIONSTUDYHIP, [id number]/04/2020 CTFINDINGSA single frontal view of the pelvis demonstrates the pelvic ring to be intact. No evidence for acute cortical disruption or dislocation of the left hip can be observed. Frog leg views of the left hip fails to demonstrate evidence for fracture or significant joint abnormality. Old right pubic rami fractures.IMPRESSIONNegative examElectronically signed by: Shaun Walters (Jan 10, 2020 12:58:09)
[2020-01-11 06:09] LABS: BLOOD UREA NITROGEN 9 mg/dL (7-18); CALCIUM 8.4 mg/dL (8.5-10.1); CARBON DIOXIDE 27.2 mmol/L (21-32); CHLORIDE 103 mmol/L (98-107); CREATININE 0.79 mg/dL (0.55-1.02); SODIUM 139 mmol/L (136-145); eGFR NON BLACK RACES > 60 (>60)
[2020-01-11 06:10] LABS: BASOPHILS # (AUTO) 0.1 X10^3/uL (0.0-0.1); BASOPHILS % (AUTO) 0.6 % (0.2-1.0); EOSINOPHILS # (AUTO) 0.2 x10^3/uL (0.0-0.2); EOSINOPHILS % (AUTO) 2.4 % (0.9-2.9); HEMATOCRIT 32.2 % (36.0-47.0); HEMOGLOBIN 11.1 g/dL (12.0-16.0); LYMPHOCYTES # (AUTO) 2.3 X10^3/uL (1.3-2.9); LYMPHOCYTES % (AUTO) 25.2 % (21.0-51.0); MEAN CORPUSCULAR HGB CONC 34.4 g/dL (33.0-35.0); MEAN CORPUSCULAR VOLUME 90.1 fL (80.0-100.0); MEAN PLATELET VOLUME 7.9 fL (7.4-11.0); MONOCYTES # (AUTO) 0.4 x10^3/uL (0.3-0.8); NEUTROPHILS # (AUTO) 6.1 x10^3/uL (2.2-4.8); NEUTROPHILS % (AUTO) 67.8 % (42.0-75.0); PLATELET COUNT 209 X10^3/uL (150.0-450.0); RED BLOOD COUNT 3.57 X10^6/uL (3.5-5.4); RED CELL DISTRIBUTION WIDTH 14.7 % (11.6-16.5); WHITE BLOOD COUNT 8.9 X10^3/uL (3.6-10.0)
[2020-01-11] MEDS: NS 1000 ML 1,000 ML IV SCH (06:45)
[2020-01-11] MEDS: CYMBALTA PO SCH (08:56)
[2020-01-11] MEDS: CATAPRES TAB 0.1 MG PO SCH (08:56)
[2020-01-11] MEDS ORDERED: KLOR-CON PO SCH (09:00)
[2020-01-11] MEDS ORDERED: LOVENOX INJ 40 MG SYR SC SCH (11:00)
[2020-01-11 15:29] VITALS: BP 170/99
--- NOTE | 2020-01-13 11:23 | W.DIS.FURT ---
Summary of Discharge Discharge Summary of Date Date of Exam: 01/11/20 Admission Date Date of Admission: 01/09/20 Admission Diagnosis Hospital Course: Ms. Ledesma is a 54y/o female with a PMH of Atrial fibrillation, HTN, chronic back pain, Colon cancer s/p resection and chemotherapy presented with nausea, vomiting and memory loss. Patient states when she woke up yesterday, she could not remember anything. She lives with her spouse at home. She denies any trauma or falls, not being sick lately. She said she remembers going to the grocery store and vomiting on her way back. She is not able to provide much details. She states she was started on Temazepam about a week ago and she takes it at bedtime. She also takes Lorcet once a day but she didn't take it yesterday. She denies taking more than her prescribed medications. She states her legs hurt more and her numbness in her feet is worse than usual. She does have neuropathy and takes duloxetine. She is not clearly able to tell me if she was walking yesterday, she states she uses a walker sometimes. Denies fever or chills, no cough or SOB. No sick contact.CXR (-) CTAP: prior colon resection, no acute abnormalities CT-head: no acute process Lumbar CT: negative. Patient was brittni tored with frequent neurochecks and daily labs. Electrolytes were replaced as needed. Patient's LE weakness improved with hydration. PT was consulted and did not recommend any further rehab. Patient's symptoms likely related to temazepam that was started recently. Advised patient to follow up with PCP and discuss other options for sleep and anxiety. Patient stable for discharge. Vital Signs: Vital Signs (72 hours) 01/10/20 12:00 01/10/20 16:00 01/10/20 20:00 Temperature 98.5 F 98.3 F 97.5 F L Pulse Rate [Apical] 78 87 83 Respiratory Rate 20 20 24 Blood Pressure [Left Arm] 159/88 147/80 153/90 O2 Sat by Pulse Oximetry 94 L 95 97 01/11/20 00:00 01/11/20 04:00 01/11/20 08:00 Temperature 98.9 F 98.1 F 98.3 F Pulse Rate [Apical] 81 74 86 Respiratory Rate 22 20 18 Blood Pressure [Left Arm] 138/86 154/87 173/94 O2 Sat by Pulse Oximetry 95 95 93 L 01/11/20 12:00 Temperature 98.4 F Pulse Rate [Apical] 82 Respiratory Rate 18 Blood Pressure [Left Arm] 170/99 O2 Sat by Pulse Oximetry 97 Labs: Laboratory Last Values WBC 8.9 X10^3/uL (3.6-10.0) 01/11/20 04:26 RBC 3.57 X10^6/uL (3.5-5.4) 01/11/20 04:26 Hgb 11.1 g/dL (12.0-16.0) L 01/11/20 04:26 Hct 32.2 % (36.0-47.0) L 01/11/20 04:26 MCV 90.1 fL (80.0-100.0) 01/11/20 04:26 MCH 31.0 pg (27.0-34.0) 01/11/20 04:26 MCHC 34.4 g/dL (33.0-35.0) 01/11/20 04:26 RDW 14.7 % (11.6-16.5) 01/11/20 04:26 Plt Count 209 X10^3/uL (150.0-450.0) 01/11/20 04:26 Plt Count Comment Cancelled 01/11/20 04:26 MPV 7.9 fL (7.4-11.0) 01/11/20 04:26 Neut % (Auto) 67.8 % (42.0-75.0) 01/11/20 04:26 Lymph % (Auto) 25.2 % (21.0-51.0) 01/11/20 04:26 Rooks % (Auto) 4.0 % (0.0-13.0) 01/11/20 04:26 Eos % (Auto) 2.4 % (0.9-2.9) 01/11/20 04:26 Baso % (Auto) 0.6 % (0.2-1.0) 01/11/20 04:26 Neut # (Auto) 6.1 x10^3/uL (2.2-4.8) H 01/11/20 04:26 Lymph # (Auto) 2.3 X10^3/uL (1.3-2.9) 01/11/20 04:26 Rooks # (Auto) 0.4 x10^3/uL (0.3-0.8) 01/11/20 04:26 Eos # (Auto) 0.2 x10^3/uL (0.0-0.2) 01/11/20 04:26 Baso # (Auto) 0.1 X10^3/uL (0.0-0.1) 01/11/20 04:26 Absolute Nucleated RBC 0.0 /100WBC 01/11/20 04:26 Total Counted Cancelled 01/11/20 04:26 Neutrophils % (Manual) Cancelled 01/11/20 04:26 Band Neutrophils % Cancelled 01/11/20 04:26 Lymphocytes % (Manual) Cancelled 01/11/20 04:26 Monocytes % (Manual) Cancelled 01/11/20 04:26 Eosinophils % (Manual) Cancelled 01/11/20 04:26 Basophils % (Manual) Cancelled 01/11/20 04:26 Metamyelocytes % Cancelled 01/11/20 04:26 Myelocytes % Cancelled 01/11/20 04:26 Promyelocytes % Cancelled 01/11/20 04:26 Nucleated RBCs Cancelled 01/11/20 04:26 Atypical Lymphocytes Cancelled 01/11/20 04:26 Blast Cells Cancelled 01/11/20 04:26 Smudge Cells Cancelled 01/11/20 04:26 Toxic Granulation Cancelled 01/11/20 04:26 Dohle Bodies Cancelled 01/11/20 04:26 Lia Rods Cancelled 01/11/20 04:26 Plt Clumps, EDTA Cancelled 01/11/20 04:26 Giant Platelets Cancelled 01/11/20 04:26 Plt Morphology Comment Cancelled 01/11/20 04:26 RBC Morphology Cancelled 01/11/20 04:26 Dimorphic RBCs Cancelled 01/11/20 04:26 Polychromasia Cancelled 01/11/20 04:26 Hypochromasia Cancelled 01/11/20 04:26 Poikilocytosis Cancelled 01/11/20 04:26 Basophilic Stippling Cancelled 01/11/20 04:26 Anisocytosis Cancelled 01/11/20 04:26 Microcytosis Cancelled 01/11/20 04:26 Macrocytosis Cancelled 01/11/20 04:26 Spherocytes Cancelled 01/11/20 04:26 Pappenheimer Bodies Cancelled 01/11/20 04:26 Sickle Cells Cancelled 01/11/20 04:26 Target Cells Cancelled 01/11/20 04:26 Tear Drop Cells Cancelled 01/11/20 04:26 Ovalocytes Cancelled 01/11/20 04:26 Stomatocytes Cancelled 01/11/20 04:26 Helmet Cells Cancelled 01/11/20 04:26 [place] Bodies Cancelled 01/11/20 04:26 Blanding Rings Cancelled 01/11/20 04:26 Ketty Cells Cancelled 01/11/20 04:26 Crenated Cell Cancelled 01/11/20 04:26 Acanthocytes (Spur) Cancelled 01/11/20 04:26 Rouleaux Cancelled 01/11/20 04:26 Schistocytes Cancelled 01/11/20 04:26 PT 12.6 SECONDS (11.8-14.3) 01/08/20 23:40 INR Target Range - 01/08/20 23:40 INR 0.97 (0.8-1.3) 01/08/20 23:40 APTT 26.8 SECONDS (22.9-36.5) 01/08/20 23:40 PTT Comment - 01/08/20 23:40 Sodium 139 mmol/L (136-145) 01/11/20 04:26 Corrected Sodium TNP 01/11/20 04:26 Potassium 3.3 mmol/L (3.5-5.1) L 01/11/20 04:26 Chloride 103 mmol/L (98-107) 01/11/20 04:26 Carbon Dioxide 27.2 mmol/L (21-32) 01/11/20 04:26 BUN 9 mg/dL (7-18) 01/11/20 04:26 Creatinine 0.79 mg/dL (0.55-1.02) 01/11/20 04:26 Est GFR (MDRD) Af Amer > 60 (>60) 01/11/20 04:26 Est GFR (MDRD) Non-Af > 60 (>60) 01/11/20 04:26 Glucose 100 mg/dL (65-99) H 01/11/20 04:26 Calcium 8.4 mg/dL (8.5-10.1) L 01/11/20 04:26 Corrected Calcium 9.3 mg/dL (8.5-10.1) 01/09/20 05:15 Magnesium 2.1 mg/dL (1.7-2.9) 01/10/20 09:36 Total Bilirubin 0.30 mg/dL (0.2-1.0) 01/09/20 05:15 AST 17 Units/L (15-37) 01/09/20 05:15 ALT 17 Units/L (12-78) 01/09/20 05:15 Alkaline Phosphatase 89 Units/L (46-116) 01/09/20 05:15 Ammonia 19 umol/L (11-32) 01/08/20 23:40 Creatine Kinase 37 Units/L (26-192) 01/10/20 09:36 CK-MB (CK-2) 1.0 ng/mL (0-4.0) 01/08/20 23:40 CK/CKMB % Calc 1.5 % (<4) 01/08/20 23:40 Troponin I < 0.02 ng/mL (0-1.5) 01/08/20 23:40 Total Protein 6.9 g/dL (6.4-8.2) 01/09/20 05:15 Albumin 3.0 g/dL (3.4-5.0) L 01/09/20 05:15 Globulin 3.9 g/dL (2.5-4.5) 01/09/20 05:15 Albumin/Globulin Ratio 0.8 Ratio (1.1-2.1) L 01/09/20 05:15 Triglycerides 195 mg/dL (0-150) H 01/09/20 05:15 Cholesterol 174 mg/dL (0-200) 01/09/20 05:15 LDL Cholesterol, Calc 74 mg/dL (0-100) 01/09/20 05:15 HDL Cholesterol 61 mg/dL (40-60) H 01/09/20 05:15 Cholesterol/HDL Ratio 2.9 (0.0-5.0) 01/09/20 05:15 Amylase 15 Units/L (25-115) L 01/08/20 23:40 Lipase 61 Units/L (73-393) L 01/08/20 23:40 Specimen Type Catherized urine 01/09/20 01:31 Urine Color Yellow (YELLOW) 01/09/20 01:31 Urine Appearance Clear (CLEAR) 01/09/20 01:31 Urine pH 5.0 (5.0 - 8.0) 01/09/20 01:31 Ur Specific Gibson 1.030 (1.000-1.030) 01/09/20 01:31 Urine Protein 3+ (NEGATIVE) 01/09/20 01:31 Urine Glucose (UA) Negative (NEGATIVE) 01/09/20 01: Urine Ketones Negative (NEGATIVE) 01/09/20 01: Urine Occult Blood 1+ (NEGATIVE) 01/09/20 01: Urine Nitrite Negative (NEGATIVE) 01/09/20 01: Urine Bilirubin Negative (NEGATIVE) 01/09/20 01: Urine Urobilinogen Normal (NORMAL) 01/09/20 01:31 Ur Leukocyte Esterase Negative (NEGATIVE) 01/09/20 01:31 Urine RBC 0-2 /HPF (0-3) 01/09/20 01:31 Urine WBC 0-2 /HPF (0-5) 01/09/20 01:31 Ur Squamous Epith Cells Few /HPF (NEGATIVE) 01/09/20 01:31 Amorphous Sediment 1+ /HPF (NEGATIVE) 01/09/20 01:31 Urine Bacteria Trace /HPF (NEGATIVE) 01/09/20 01:31 Ur Culture Indicated? No/not indicated 01/09/20 01:31 Urine Opiates Screen Positive (NEG=<300) A 01/09/20 01:30 Urine Methadone Screen Negative (NEG=<300) 01/09/20 01:30 Ur Barbiturates Screen Negative (NEG=<200) 01/09/20 01:30 Ur Phencyclidine Scrn Negative (NEG=<25) 01/09/20 01:30 Ur Amphetamines Screen Negative (NEG=<1000) 01/09/20 01:30 U Benzodiazepines Scrn Negative (NEG=<200) 01/09/20 01:30 Urine Cocaine Screen Negative (NEG=<300) 01/09/20 01:30 U Marijuana (THC) Screen Negative (NEG=<50) 01/09/20 01:30 Reason For Visit: AMS; AMNESIA; LEG WEAKNESS; HYPERGLYCEMIA; CKD Discharge Date Discharge Date: 01/11/20 Discharge Diagnosis All Active Problems (Updated 01/09/20 @ 11:12 by Eva Perkins) Atrial fibrillation (Acute) Eye infection (Active) Back pain (Acute) Back strain (Acute) Sciatica (Acute) Abrasion (Acute) Abdominal pain (Acute) Internal hemorrhoids (Acute) Nausea & vomiting (Acute) Elevated WBCs (Acute) Acute exacerbation of chronic low back pain (Acute) Chronic back pain (Acute) Headache, chronic migraine without aura (Acute) Acute infectious diarrhea (Acute) Abdominal pain (Acute) Diarrhea in adult patient (Acute) Hypokalemia (Acute) Hyperglycemia (Acute) Bronchitis (Acute) Anemia (Acute) Colon cancer (Acute) Altered mental status (Acute) Lethargic (Acute) Increased ammonia level (Acute) Pneumonia (Acute) Abdominal pain (Acute) Diarrhea (Acute) Muscle cramp (Acute) Migraine (Acute) Fall (Acute) Contusion of left eyebrow (Acute) Headache (Acute) Chronic back pain (Acute) Acute exacerbation of chronic low back pain (Acute) Migraine (Acute) Nausea (Acute) Sinusitis, acute ethmoidal (Acute) Hypertension (Acute) Amnesia memory loss (Acute) Bilateral leg weakness (Acute) History of colon cancer (Acute) Anxiety neurosis (Acute) Plan of Treatment: Continue with present treatment and follow up plan. Pt is to keep follow up appointment as instructed and take medications as ordered. Discharge Medications Discharge Medications: No Known Drug Allergies Allergy (Verified 09/10/19 15:37) CONTINUE taking the following medications cetirizine 10 mg PO DAILY 01/08/20 [History] clonidine HCl 0.1 mg PO BID 01/08/20 [History] duloxetine 60 mg PO DAILY 01/08/20 [History] estradiol 2 mg PO DAILY 01/08/20 [History] hydrocodone-acetaminophen 1 tab PO TID 01/08/20 [History] mirtazapine [Remeron] 30 mg PO DAILY 01/08/20 [History] Follow up and Referral Follow Up: 1 Week (PCP ) Discharge Disposition Discharge Disposition: Home Discharge Condition: Stable
== END 2020-01-11 12:25 | disposition home or self-care (01) ==
LOC: ER 22:42 → MED/SURG 22:42
PROVIDERS: ADMIT Internal Medicine; ATTEND Internal Medicine
DX: R53.1 Weakness; R41.3 Other amnesia; F41.1 Generalized anxiety disorder; R06.02 Shortness of breath; G44.229 Chronic tension-type headache, not intractable; G89.29 Other chronic pain; N18.3 Chronic kidney disease, stage 3 (moderate); R41.82 Altered mental status, unspecified; C18.9 Malignant neoplasm of colon, unspecified; I48.91 Unspecified atrial fibrillation; R26.89 Other abnormalities of gait and mobility; R94.31 Abnormal electrocardiogram [ECG] [EKG]; M54.42 Lumbago with sciatica, left side
CPT/HCPCS: 36415; 51701; 70450; 71010; 71045; 72131; 73501; 74176; 80048; 80053; 80061; 80307; 81001; 82140; 82150; 82550; 82553; 83690; 83735; 84484; 85025; 85610; 85730; 93005; 94760; 96360; 96361; 96365; 96367; 96374; 97162; 99284; A4222; G0378; J1885; J7030